=== PATIENT | female | born 1980 | race Caucasian/White ===

== ENCOUNTER 2017-03-01 20:39 | Emergency (ER) | payer BC ==
[2017-03-01] MEDS ORDERED: HYDROmorphone 2 MG/ML 1 ML SYRINGE IVP STA (21:31)
[2017-03-01] MEDS ORDERED: ONDANSETRON 4 MG/2 ML VIAL IVP STA (21:31)
[2017-03-01] MEDS ORDERED: SODIUM CHLORIDE 0.9% 1,000 ML IV STA (21:31)
[2017-03-01] MEDS ORDERED: FAMOTIDINE 20 MG/2 ML VIAL IV STA (21:31)
[2017-03-01] MEDS ORDERED: RX INFO: IV CONTRAST WAS GIVEN 1 EACH MISC MISCELLANE PRN (21:31)
--- NOTE | 2017-03-01 21:35 | ED ---
General Adult HPI - General Chief complaint: Abdominal Pain Stated complaint: Abdominal pain Time Seen by Provider: 03/01/17 21:18 Source: patient, RN notes reviewed Mode of arrival: ambulatory Limitations: no limitations - History of Present Illness Initial comments: Patient is a pleasant 37-year-old female presenting to the emergency department with abdominal and lower back pain. Onset was this afternoon. Symptoms have progressively worsened since that time. Patient does have a history of similar symptoms previously associated with diverticulitis. Patient has been admitted twice previously for this. Patient may have had this 2 other times as well. No dysuria or hematuria. No constipation or diarrhea. Patient has had some loose stools. Patient has had some nausea and vomiting. No fevers. - Related Data Home Medications Medication Instructions Recorded Confirmed Cephalexin [Keflex] 500 mg PO TID 03/01/17 03/01/17 Ibuprofen [Motrin] 400 mg PO Q6HR PRN 03/01/17 03/01/17 Previous Rx's Medication Instructions Recorded Ketorolac [Toradol] 10 mg PO Q6HR PRN #15 tab 03/02/17 Allergies Allergy/AdvReac Type Severity Reaction Status Date / Time No Known Allergies Allergy Verified 03/01/17 21:11 Review of Systems ROS Statement: Those systems with pertinent positive or pertinent negative responses have been documented in the HPI. ROS Other: All systems not noted in ROS Statement are negative. Constitutional: Denies: fever, chills Eyes: Denies: eye pain ENT: Denies: ear pain Respiratory: Denies: cough, dyspnea Cardiovascular: Denies: chest pain Endocrine: Denies: heat or cold intolerance Gastrointestinal: Reports: abdominal pain, nausea, vomiting. Denies: diarrhea Genitourinary: Denies: dysuria, frequency, hematuria Musculoskeletal: Reports: back pain Skin: Denies: rash Neurological: Denies: weakness Past Medical History Additional Past Medical History / Comment(s): diverticulitis History of Any Multi-Drug Resistant Organisms: None Reported Past Surgical History: Appendectomy, Breast Surgery, Cholecystectomy, Hysterectomy Additional Past Surgical History / Comment(s): left breast lumpectomy at 16 yrs old Past Anesthesia/Blood Transfusion Reactions: No Reported Reaction, Motion Sickness Past Psychological History: No Psychological Hx Reported Smoking Status: Current every day smoker Past Alcohol Use History: None Reported Past Drug Use History: None Reported - Past Family History Mother Family Medical History: No Reported History General Exam Limitations: no limitations General appearance: alert, in no apparent distress Head exam: Present: atraumatic Eye exam: Present: normal appearance, PERRL ENT exam: Present: normal oropharynx Neck exam: Present: normal inspection Respiratory exam: Present: normal lung sounds bilaterally Cardiovascular Exam: Present: regular rate, normal rhythm Expanded Peripheral pulses: 2+: Posterior Tibialis (R), Posterior Tibialis (L) GI/Abdominal exam: Present: soft, tenderness (Mild to moderate tenderness lower abdomen), normal bowel sounds. Absent: distended, guarding, rebound, rigid, pulsatile mass Extremities exam: Present: normal inspection. Absent: calf tenderness Back exam: Present: normal inspection. Absent: tenderness, vertebral tenderness Neurological exam: Present: alert Psychiatric exam: Present: normal affect, normal mood Skin exam: Present: normal color Course Vital Signs 03/01/17 03/01/17 03/01/17 20:51 22:11 23:17 Temperature 97.6 F Pulse Rate 105 H 79 85 Respiratory 18 20 18 Rate Blood Pressure 132/81 106/62 109/71 O2 Sat by Pulse 99 97 100 Oximetry - Reevaluation(s) Reevaluation #1: 03/02/17 00:41 Patient states only mild improvement with Dilaudid. Patient still had similar exam. Patient was provided Toradol and now feels much better. There is potential of missed kidney stone on computed tomography scan secondary to IV contrast. Patient does have hematuria. Patient has had previous hysterectomy. Patient is comfortable at this time and is comfortable with discharge. Medical Decision Making - Lab Data Result diagrams: 03/01/17 21:48 03/01/17 21:48 Lab Results 03/01/17 03/01/17 03/01/17 Range/Units 21:48 21:48 21:48 WBC 9.5 (3.8-10.6) k/uL RBC 4.92 (3.80-5.40) m/uL Hgb 14.6 (11.4-16.0) gm/dL Hct 43.9 (34.0-46.0) % MCV 89.3 (80.0-100.0) fL MCH 29.6 (25.0-35.0) pg MCHC 33.1 (31.0-37.0) g/dL RDW 13.1 (11.5-15.5) % Plt Count 271 (150-450) k/uL Neutrophils % 66 % Lymphocytes % 28 % Monocytes % 3 % Eosinophils % 1 % Basophils % 0 % Neutrophils # 6.3 (1.3-7.7) k/uL Lymphocytes # 2.7 (1.0-4.8) k/uL Monocytes # 0.3 (0-1.0) k/uL Eosinophils # 0.1 (0-0.7) k/uL Basophils # 0.0 (0-0.2) k/uL PT 9.6 (9.0-12.0) sec INR 1.0 (<1.2) APTT 26.6 (22.0-30.0) sec Sodium 139 (137-145) mmol/L Potassium 4.2 (3.5-5.1) mmol/L Chloride 109 H (98-107) mmol/L Carbon Dioxide 21 L (22-30) mmol/L Anion Gap 9 mmol/L BUN 12 (7-17) mg/dL Creatinine 0.69 (0.52-1.04) mg/dL Est GFR (MDRD) Af Amer >60 (>60 ml/min/1.73 sqM) Est GFR (MDRD) Non-Af >60 (>60 ml/min/1.73 sqM) Glucose 93 (74-99) mg/dL Calcium 10.1 (8.4-10.2) mg/dL Total Bilirubin 0.3 (0.2-1.3) mg/dL AST 16 (14-36) U/L ALT 30 (9-52) U/L Alkaline Phosphatase 68 (38-126) U/L Total Protein 6.8 (6.3-8.2) g/dL Albumin 4.1 (3.5-5.0) g/dL Amylase 64 (30-110) U/L Lipase 53 (23-300) U/L Urine Color Urine Appearance (Clear) Urine pH (5.0-8.0) Ur Specific [place] (1.001-1.035) Urine Protein (Negative) Urine Glucose (UA) (Negative) Urine Ketones (Negative) Urine Blood (Negative) Urine Nitrite (Negative) Urine Bilirubin (Negative) Urine Urobilinogen (<2.0) mg/dL Ur Leukocyte Esterase (Negative) Urine RBC (0-5) /hpf Urine WBC (0-5) /hpf Ur Squamous Epith Cells (0-4) /hpf Urine Mucus (None) /hpf 03/01/17 Range/Units 22:13 WBC (3.8-10.6) k/uL RBC (3.80-5.40) m/uL Hgb (11.4-16.0) gm/dL Hct (34.0-46.0) % MCV (80.0-100.0) fL MCH (25.0-35.0) pg MCHC (31.0-37.0) g/dL RDW (11.5-15.5) % Plt Count (150-450) k/uL Neutrophils % % Lymphocytes % % Monocytes % % Eosinophils % % Basophils % % Neutrophils # (1.3-7.7) k/uL Lymphocytes # (1.0-4.8) k/uL Monocytes # (0-1.0) k/uL Eosinophils # (0-0.7) k/uL Basophils # (0-0.2) k/uL PT (9.0-12.0) sec INR (<1.2) APTT (22.0-30.0) sec Sodium (137-145) mmol/L Potassium (3.5-5.1) mmol/L Chloride (98-107) mmol/L Carbon Dioxide (22-30) mmol/L Anion Gap mmol/L BUN (7-17) mg/dL Creatinine (0.52-1.04) mg/dL Est GFR (MDRD) Af Amer (>60 ml/min/1.73 sqM) Est GFR (MDRD) Non-Af (>60 ml/min/1.73 sqM) Glucose (74-99) mg/dL Calcium (8.4-10.2) mg/dL Total Bilirubin (0.2-1.3) mg/dL AST (14-36) U/L ALT (9-52) U/L Alkaline Phosphatase (38-126) U/L Total Protein (6.3-8.2) g/dL Albumin (3.5-5.0) g/dL Amylase (30-110) U/L Lipase (23-300) U/L Urine Color Yellow Urine Appearance Clear (Clear) Urine pH 5.5 (5.0-8.0) Ur Specific [place] 1.022 (1.001-1.035) Urine Protein Trace H (Negative) Urine Glucose (UA) Negative (Negative) Urine Ketones Negative (Negative) Urine Blood Moderate H (Negative) Urine Nitrite Negative (Negative) Urine Bilirubin Negative (Negative) Urine Urobilinogen 2.0 (<2.0) mg/dL Ur Leukocyte Esterase Negative (Negative) Urine RBC 36 H (0-5) /hpf Urine WBC <1 (0-5) /hpf Ur Squamous Epith Cells 2 (0-4) /hpf Urine Mucus Rare H (None) /hpf - Radiology Data Radiology results: report reviewed (Computed tomography scan of the abdomen and pelvis shows findings consistent with previous CT. No sign of acute abdominal abnormality.) Disposition Clinical Impression: Abdominal pain Disposition: HOME SELF-CARE Condition: Stable Instructions: Abdominal Pain (ED), Kidney Stones (ED) Additional Instructions: Please follow-up to in the next day or 2 for recheck. Please return for fevers, vomiting, increased pain, worsening symptoms or other concerns. Prescriptions: Ketorolac [Toradol] 10 mg PO Q6HR PRN #15 tab PRN Reason: Pain Referrals: Darin Julien MD [Primary Care Provider] - 1-2 days Time of Disposition: 00:45
[2017-03-01 22:00] LABS: Basophils % (A) 0 %; Eosinophils # (A) 0.1 k/uL (0-0.7); Eosinophils % (A) 1 %; HCT 43.9 % (34.0-46.0); HGB 14.6 gm/dL (11.4-16.0); Lymphocytes # (A) 2.7 k/uL (1.0-4.8); Lymphocytes % (A) 28 %; MCH 29.6 pg (25.0-35.0); MCHC 33.1 g/dL (31.0-37.0); MCV 89.3 fL (80.0-100.0); Mean Platelet Volume 6.8; Monocytes # (A) 0.3 k/uL (0-1.0); Monocytes % (A) 3 %; Neutrophils # (A) 6.3 k/uL (1.3-7.7); Neutrophils % (A) 66 %; Platelet Count 271 k/uL (150-450); RBC 4.92 m/uL (3.80-5.40); RDW 13.1 % (11.5-15.5); WBC 9.5 k/uL (3.8-10.6)
[2017-03-01 22:11] LABS: ALT 30 U/L (9-52); AST 16 U/L (14-36); Albumin 4.1 g/dL (3.5-5.0); Alkaline Phosphatase 68 U/L (38-126); Amylase 64 U/L (30-110); Anion Gap 9 mmol/L; Blood Urea Nitrogen 12 mg/dL (7-17); Calcium 10.1 mg/dL (8.4-10.2); Carbon Dioxide 21 mmol/L (22-30); Chloride 109 mmol/L (98-107); Glucose 93 mg/dL (74-99); Lipase 53 U/L (23-300); Potassium 4.2 mmol/L (3.5-5.1); Sodium 139 mmol/L (137-145); Total Bilirubin 0.3 mg/dL (0.2-1.3); Total Protein 6.8 g/dL (6.3-8.2)
[2017-03-01 22:12] LABS: Partial Thromboplastin Time 26.6 sec (22.0-30.0); Prothrombin Time 9.6 sec (9.0-12.0)
[2017-03-01 22:25] LABS: Appearance,Urine Clear (Clear); Bilirubin,Urine Negative (Negative); Blood,Urine Moderate (Negative); Color,Urine Yellow; Glucose,Urine (UA) Negative (Negative); Ketones,Urine Negative (Negative); Leukocyte Esterase,Urine Negative (Negative); Mucus,Urine Rare /hpf; Nitrite,Urine Negative (Negative); PH, Urine 5.5 (5.0-8.0); Protein,Urine Trace (Negative); RBC,Urine 36 /hpf (0-5); Specific Gravity,Urine 1.022 (1.001-1.035); Squamous Epithelial Cell,Urine 2 /hpf (0-4); WBC,Urine <1 /hpf (0-5)
--- NOTE | 2017-03-01 23:07 | CT ---
EXAMINATION TYPE: CT abdomen pelvis w con DATE OF EXAM: 03/01/2017 COMPARISON: 10/13/2012 HISTORY: Generalized abdominal pain with nausea, vomiting and diarrhea x today. CT DLP: 756.50 mGycm Automated exposure control for dose reduction was used. TECHNIQUE: Helical acquisition of images was performed from the lung bases through the pelvis. CONTRAST: Performed without Oral Contrast and with IV Contrast, patient injected with 100 mL of Omnipaque 300. FINDINGS: There is minimal linear density at the lung bases consistent with subsegmental atelectasis. There is a 3 cm rounded hypodensity in the superior right lobe of the liver. There is a 1 cm similar hypodensi ty in the lateral right lobe of the liver. There are clips from cholecystectomy. Bile ducts are not d ilated. There is no evidence of pancreatic mass. Spleen appears normal. There is no adrenal mass. Kidneys show satisfactory contrast opacification. There is no hydronephrosi s. There is no retroperitoneal adenopathy. Bladder distends smoothly. There is no sign of a pelvic ma ss. Appendix is not seen. There are surgical clips in the right lower quadrant probably from appendec rené. I see no intestinal wall thickening. There are no dilated loops. I see no bony destructive proc ess. IMPRESSION: SMALL LIVER LESIONS COULD BE HEMANGIOMATA. THESE APPEAR NOT SIGNIFICANTLY DIFFERENT THAN OLD CT SCAN. THERE IS DECREASED SIZE OF THE INTRAHEPATIC BILE DUCTS COMPARED TO OLD EXAM. NO SIGN OF ACUTE ABDOME N AND PELVIS.
[2017-03-01 23:18] VITALS: PULSE 85; RESP 18
[2017-03-01] MEDS ORDERED: KETOROLAC 30 MG/ML 1 ML VIAL IVP STA (23:39)
[2017-03-02 01:03] VITALS: BP 109/76; TEMP 98.2
== END 2017-03-02 01:02 | disposition home or self-care (01) ==
LOC: EC 20:39
DX: R10.9 Unspecified abdominal pain (principal); M54.5 Low back pain; R31.9 Hematuria, unspecified; R11.2 Nausea with vomiting, unspecified; F17.200 Nicotine dependence, unspecified, uncomplicated; Z90.49 Acquired absence of other specified parts of digestive tract
CPT/HCPCS: 36415; 80053; 82150; 83690; 85025; 85610; 85730; 81001; 74177; 99284; 96374; 96375 ×3; 96361; J1170; J2405; J1885; Q9967; 87086

== ENCOUNTER 2017-05-11 08:49 | Day surgery (SDC) | payer BC ==
[2017-05-09 15:49] VITALS: BMI 32.3
[~2017-05-11 08:49] MED LIST: LACTATED RINGERS 1,000 ML IV SCH; LIDOCAINE 1% 20 ML VIAL (10MG/ML) FOR IV START INTRADERMA PRN
[2017-05-11 09:53] VITALS: RESP 16; TEMP 98.6
[2017-05-11] MEDS ORDERED: PROPOFOL 10 MG/ML 20 ML VIAL IV ONE (10:05)
[2017-05-11] MEDS ORDERED: LIDOCAINE 1% 20 ML VIAL (10MG/ML) FOR IV START INTRADERMA ONE (10:05)
--- NOTE | 2017-05-11 10:43 | P.PCN ---
Date of Procedure: 05/11/17 Procedure(s) Performed: Procedure: Colonoscopy and polypectomy. Preoperative diagnosis: History of diverticulitis. Postoperative diagnosis: 1. Diffuse diverticulosis with no evidence of acute diverticulitis or strictures. 2. Sigmoid polyp snared but no large polyps or cancer. Preparation: HalfLytely prep. Sedation: Was provided by anesthesia. Brief clinical history: The patient is a 37-year-old female who had an episode of diverticulitis in February. This evaluation is to assess for neoplasia or complicated diverticular disease. Procedure: With the patient on her left lateral decubitus position and after informed consent and adequate sedation, the perianal area was inspected and it did not show any fissures or fistulas. There were no masses felt on digital rectal examination. The Olympus CFQ 160L video colonoscope was then inserted in the rectum in the usual fashion and advanced to the cecum. There was diffuse diverticulosis noted with no evidence of acute diverticulitis or strictures. At 30 cm from the anal canal, there was a 1.5-2 cm pedunculated polyp which was snared and retrieved by suctioning it to the tip of the endoscope, withdrawing the endoscope, and restarting the exam. I retroflexed the endoscope in the rectum before the endoscope was withdrawn. The patient tolerated the procedure well. Plan: The patient was reassured. Discussed dietary measures. I recommended repeat exam in 3 years. She'll follow-up with you as planned.
[2017-05-11 10:56] VITALS: BP 149/78; PULSE 89
== END 2017-05-11 11:30 | disposition home or self-care (01) ==
LOC: ORWHC2ENDO 08:49
DX: D12.5 Benign neoplasm of sigmoid colon (principal); K57.30 Diverticulosis of large intestine without perforation or abscess without bleeding; F17.210 Nicotine dependence, cigarettes, uncomplicated
CPT/HCPCS: 88305; 45385; J2704

== ENCOUNTER 2017-09-22 20:25 | Emergency (ER) | payer BC ==
[2017-09-22 21:20] VITALS: TEMP 98.3
[2017-09-22] MEDS ORDERED: MORPHINE SULFATE 4 MG/ML SYRINGE IV STA (21:43)
[2017-09-22] MEDS ORDERED: SODIUM CHLORIDE 0.9% 1,000 ML IV STA (21:43)
[2017-09-22] MEDS ORDERED: ONDANSETRON 4 MG/2 ML VIAL IVP STA (21:43)
--- NOTE | 2017-09-22 21:43 | ED ---
General Adult HPI - General Chief complaint: Abdominal Pain Stated complaint: abdominal pain- Time Seen by Provider: 09/22/17 21:30 Source: patient Mode of arrival: ambulatory Limitations: no limitations - History of Present Illness Initial comments: Female the past medical history of diverticulitis who presents to the ER today for evaluation of lower abdominal pain. Patient was in her usual state of health throughout the day today. She reports she had a normal diet, she had breakfast but chose to skip lunch which is typical for her. She states that she was feeling well until approximately 6 PM when she was sitting on the toilet have a bowel movement. She states that she wasn't straining, she had a bowel movement which was normal in color caliber and consistency but she suddenly developed low abdominal pain, nausea and has had 3 episodes of nonbloody nonbilious emesis. Patient sought care at [facility] where urinalysis revealed some hematuria and she was advised to come to the ER for further evaluation. She reports that she has had diverticulitis multiple times in the past. Her last episode was approximately one year ago. She had a colonoscopy in April of this year which had findings of diverticulosis. Patient reports that with previous episodes of diverticulitis she has had very similar symptoms. She reports that she has lower abdominal pain, nausea, vomiting and pain that radiates to her back. The patient is status post hysterectomy 6 years previous. No history of kidney stones. Of note the patient is currently on by mouth doxycycline for recurrent cystitis. She has been taking this medication for approximately one month and is prescribed to take it for 3 months total. - Related Data Previous Rx's Medication Instructions Recorded Dicyclomine [Bentyl] 10 mg PO QID PRN #30 capsule 09/22/17 Allergies Allergy/AdvReac Type Severity Reaction Status Date / Time No Known Allergies Allergy Verified 09/22/17 21:20 Review of Systems ROS Statement: Those systems with pertinent positive or pertinent negative responses have been documented in the HPI. ROS Other: All systems not noted in ROS Statement are negative. Constitutional: Denies: fever Past Medical History Additional Past Medical History / Comment(s): diverticulitis History of Any Multi-Drug Resistant Organisms: None Reported Past Surgical History: Appendectomy, Breast Surgery, Cholecystectomy, Hysterectomy Additional Past Surgical History / Comment(s): left breast lumpectomy at 16 yrs old Past Anesthesia/Blood Transfusion Reactions: No Reported Reaction, Motion Sickness Past Psychological History: No Psychological Hx Reported Smoking Status: Current every day smoker Past Alcohol Use History: None Reported Past Drug Use History: None Reported - Past Family History Mother Family Medical History: No Reported History General Exam Limitations: no limitations General appearance: alert, in no apparent distress Head exam: Present: atraumatic, normocephalic Eye exam: Present: normal appearance, PERRL ENT exam: Present: normal exam Neck exam: Present: normal inspection Respiratory exam: Present: normal lung sounds bilaterally. Absent: respiratory distress Cardiovascular Exam: Present: regular rate, normal rhythm GI/Abdominal exam: Present: soft, tenderness. Absent: distended, guarding, rebound, rigid Rectal exam: Present: deferred Extremities exam: Present: normal inspection, full ROM Back exam: Present: normal inspection, full ROM Neurological exam: Present: alert, oriented X3 Psychiatric exam: Present: normal affect, normal mood Skin exam: Present: warm, dry Course Vital Signs 09/22/17 09/22/17 09/22/17 21:18 22:38 23:23 Temperature 98.3 F Pulse Rate 80 74 70 Respiratory 22 16 16 Rate Blood Pressure 114/75 96/54 102/59 O2 Sat by Pulse 99 98 98 Oximetry 09/23/17 09/23/17 09/23/17 00:19 01:28 02:37 Temperature Pulse Rate 68 73 80 Respiratory 20 16 16 Rate Blood Pressure 137/80 109/73 98/58 O2 Sat by Pulse 97 97 97 Oximetry - Reevaluation(s) Reevaluation #1: Patient reevaluated, resting comfortably in bed. Reports feeling better after meds and IV fluids. Lab and CT results were discussed with patient expresses relief and is agreeable to plan for discharge home. 09/22/17 23:29 Reevaluation #2: When nurse went into the room to discharge patient she was curled up in the position complaining of epigastric and chest pain. I reevaluated patient who is laying in bed reports she's having severe epigastric pain radiating into her mid chest. 09/23/17 00:34 EKG Findings - EKG Comments: EKG Findings:: EKG obtained at 12:47 AM, rate of 63, rhythm is sinus, normal axis, normal intervals, ME is 148, QRS is 94, QTC is 399, there are no acute ST elevations or depressions. There is no evidence of acute ischemia or infarction. Medical Decision Making - Medical Decision Making 37-year-old female presenting with lower abdominal pain, nausea and vomiting Vital signs with no SIRS criteria Labs and imaging ordered Zofran for nausea, Morphine for pain Labs are unremarkable Computed tomography scan with no acute findings, patient has hemangioma which is unchanged, diverticulosis with no evidence of infection She was reevaluated and is resting comfortably, expresses relief that there is no acute findings. Is agreeable to plan discharge home with by mouth Bentyl When the nurse entered the room to discharge patient, patient was complaining of worsening nausea and epigastric discomfort. She does vital signs were stable. EKG and troponins were ordered. Bentyl and a GI cocktail was ordered EKG was normal sinus rhythm with no ST elevations or depressions. Troponin and lipase were both negative. Patient was reevaluated, she reports complete resolution of her abdominal discomfort. Patient is resting comfortably and is agreeable to plan for discharge home with follow-up with gastroenterology. All questions pertaining to care were answered best my ability, return instructions were discussed and the patient was discharged home in stable condition. - Lab Data Result diagrams: 09/22/17 22:01 09/22/17 22:01 Lab Results 09/22/17 09/22/17 09/22/17 Range/Units 22:01 22:01 22:01 WBC 10.3 (3.8-10.6) k/uL RBC 4.87 (3.80-5.40) m/uL Hgb 14.3 (11.4-16.0) gm/dL Hct 43.0 (34.0-46.0) % MCV 88.5 (80.0-100.0) fL MCH 29.4 (25.0-35.0) pg MCHC 33.2 (31.0-37.0) g/dL RDW 13.4 (11.5-15.5) % Plt Count 248 (150-450) k/uL Neutrophils % 72 % Lymphocytes % 22 % Monocytes % 3 % Eosinophils % 1 % Basophils % 0 % Neutrophils # 7.4 (1.3-7.7) k/uL Lymphocytes # 2.3 (1.0-4.8) k/uL Monocytes # 0.3 (0-1.0) k/uL Eosinophils # 0.1 (0-0.7) k/uL Basophils # 0.0 (0-0.2) k/uL Sodium 138 (137-145) mmol/L Potassium 4.4 (3.5-5.1) mmol/L Chloride 111 H (98-107) mmol/L Carbon Dioxide 20 L (22-30) mmol/L Anion Gap 7 mmol/L BUN 13 (7-17) mg/dL Creatinine 0.60 (0.52-1.04) mg/dL Est GFR (CKD-EPI)AfAm >90 (>60 ml/min/1.73 sqM) Est GFR (CKD-EPI)NonAf >90 (>60 ml/min/1.73 sqM) Glucose 88 (74-99) mg/dL Calcium 10.1 (8.4-10.2) mg/dL Total Bilirubin 0.4 (0.2-1.3) mg/dL AST 21 (14-36) U/L ALT 29 (9-52) U/L Alkaline Phosphatase 58 (38-126) U/L Troponin I (0.000-0.034) ng/mL Total Protein 6.8 (6.3-8.2) g/dL Albumin 4.3 (3.5-5.0) g/dL Lipase 47 (23-300) U/L Urine Color Light Yellow Urine Appearance Clear (Clear) Urine pH 5.5 (5.0-8.0) Ur Specific [place] 1.010 (1.001-1.035) Urine Protein Negative (Negative) Urine Glucose (UA) Negative (Negative) Urine Ketones Negative (Negative) Urine Blood Small H (Negative) Urine Nitrite Negative (Negative) Urine Bilirubin Negative (Negative) Urine Urobilinogen <2.0 (<2.0) mg/dL Ur Leukocyte Esterase Negative (Negative) Urine RBC 3 (0-5) /hpf Urine WBC 3 (0-5) /hpf Ur Squamous Epith Cells 2 (0-4) /hpf Urine Bacteria Rare H (None) /hpf 09/22/17 Range/Units 22:01 WBC (3.8-10.6) k/uL RBC (3.80-5.40) m/uL Hgb (11.4-16.0) gm/dL Hct (34.0-46.0) % MCV (80.0-100.0) fL MCH (25.0-35.0) pg MCHC (31.0-37.0) g/dL RDW (11.5-15.5) % Plt Count (150-450) k/uL Neutrophils % % Lymphocytes % % Monocytes % % Eosinophils % % Basophils % % Neutrophils # (1.3-7.7) k/uL Lymphocytes # (1.0-4.8) k/uL Monocytes # (0-1.0) k/uL Eosinophils # (0-0.7) k/uL Basophils # (0-0.2) k/uL Sodium (137-145) mmol/L Potassium (3.5-5.1) mmol/L Chloride (98-107) mmol/L Carbon Dioxide (22-30) mmol/L Anion Gap mmol/L BUN (7-17) mg/dL Creatinine (0.52-1.04) mg/dL Est GFR (CKD-EPI)AfAm (>60 ml/min/1.73 sqM) Est GFR (CKD-EPI)NonAf (>60 ml/min/1.73 sqM) Glucose (74-99) mg/dL Calcium (8.4-10.2) mg/dL Total Bilirubin (0.2-1.3) mg/dL AST (14-36) U/L ALT (9-52) U/L Alkaline Phosphatase (38-126) U/L Troponin I <0.012 (0.000-0.034) ng/mL Total Protein (6.3-8.2) g/dL Albumin (3.5-5.0) g/dL Lipase (23-300) U/L Urine Color Urine Appearance (Clear) Urine pH (5.0-8.0) Ur Specific [place] (1.001-1.035) Urine Protein (Negative) Urine Glucose (UA) (Negative) Urine Ketones (Negative) Urine Blood (Negative) Urine Nitrite (Negative) Urine Bilirubin (Negative) Urine Urobilinogen (<2.0) mg/dL Ur Leukocyte Esterase (Negative) Urine RBC (0-5) /hpf Urine WBC (0-5) /hpf Ur Squamous Epith Cells (0-4) /hpf Urine Bacteria (None) /hpf Disposition Clinical Impression: Abdominal pain Disposition: HOME SELF-CARE Condition: Good Instructions: Abdominal Pain (ED) Prescriptions: Dicyclomine [Bentyl] 10 mg PO QID PRN #30 capsule PRN Reason: Pain Is patient prescribed a controlled substance at d/c from ED?: No Referrals: Darin Julien MD [Primary Care Provider] - 1-2 days
[2017-09-22 22:53] LABS: Basophils % (A) 0 %; Eosinophils # (A) 0.1 k/uL (0-0.7); Eosinophils % (A) 1 %; HGB 14.3 gm/dL (11.4-16.0); Lymphocytes # (A) 2.3 k/uL (1.0-4.8); Lymphocytes % (A) 22 %; MCH 29.4 pg (25.0-35.0); MCHC 33.2 g/dL (31.0-37.0); MCV 88.5 fL (80.0-100.0); Mean Platelet Volume 7.5; Monocytes # (A) 0.3 k/uL (0-1.0); Monocytes % (A) 3 %; Neutrophils # (A) 7.4 k/uL (1.3-7.7); Neutrophils % (A) 72 %; Platelet Count 248 k/uL (150-450); RBC 4.87 m/uL (3.80-5.40); RDW 13.4 % (11.5-15.5); WBC 10.3 k/uL (3.8-10.6)
[2017-09-22 22:56] LABS: Appearance,Urine Clear (Clear); Bacteria,Urine Rare /hpf; Bilirubin,Urine Negative (Negative); Blood,Urine Small (Negative); Color,Urine Light Yellow; Glucose,Urine (UA) Negative (Negative); Ketones,Urine Negative (Negative); Leukocyte Esterase,Urine Negative (Negative); Nitrite,Urine Negative (Negative); PH, Urine 5.5 (5.0-8.0); Protein,Urine Negative (Negative); RBC,Urine 3 /hpf (0-5); Squamous Epithelial Cell,Urine 2 /hpf (0-4); Urobilinogen,Urine <2.0 mg/dL (<2.0); WBC,Urine 3 /hpf (0-5)
[2017-09-22 23:09] LABS: ALT 29 U/L (9-52); AST 21 U/L (14-36); Albumin 4.3 g/dL (3.5-5.0); Alkaline Phosphatase 58 U/L (38-126); Anion Gap 7 mmol/L; Blood Urea Nitrogen 13 mg/dL (7-17); Calcium 10.1 mg/dL (8.4-10.2); Carbon Dioxide 20 mmol/L (22-30); Chloride 111 mmol/L (98-107); Glucose 88 mg/dL (74-99); Lipase 47 U/L (23-300); Potassium 4.4 mmol/L (3.5-5.1); Sodium 138 mmol/L (137-145); Total Bilirubin 0.4 mg/dL (0.2-1.3); Total Protein 6.8 g/dL (6.3-8.2)
--- NOTE | 2017-09-22 23:15 | CT ---
EXAMINATION TYPE: CT abdomen pelvis w con DATE OF EXAM: 09/22/2017 COMPARISON: 03/01/2017 HISTORY: Abdominal pain and vomiting CT DLP: mGycm Automated exposure control for dose reduction was used. TECHNIQUE: Helical acquisition of images was performed from the lung bases through the pelvis. CONTRAST: The contrast was Isovue 100 mL. FINDINGS: There is minimal linear density at the lung bases consistent with subsegmental atelectasis. There is no pleural effusion. There are cysts in the liver that measure up to 2.3 cm. Bile ducts are not dilat ed. There are clips from cholecystectomy. Spleen appears normal. There is no pancreatic mass. There is no adrenal mass. Kidneys show satisfactory contrast opacification. There is no hydronephrosi s. There is no retroperitoneal adenopathy. There is small umbilical hernia. This contains fat. There is no intestinal wall thickening. There are no dilated loops. There are clips apparently from a ppendectomy. Bladder distends smoothly. There is apparent hysterectomy. There is no pelvic mass. Lumb ar spine is intact. There are a few sigmoid diverticula. There is no sign of diverticulitis. IMPRESSION: HEPATIC CYSTS OR HEMANGIOMATA APPEAR UNCHANGED COMPARED TO OLD CT SCAN. MILD SIGMOID DIVERTICULOSIS. NO SIGN OF ACUTE ABDOMEN AND PELVIS. THERE IS OVERALL NO ADVERSE CHANGE COMPARED TO OLD EXAM.
[2017-09-23] MEDS ORDERED: DICYCLOMINE 10 MG/ML 2 ML AMP IM STA (00:32)
[2017-09-23] MEDS ORDERED: MAG HYDROX/AL HYDROX/SIMETH 30 ML, HYOSCYAMINE ELIXIR 10 ML, CIMETIDINE HCL 300 MG, LID... PO STA ×4 (01:19)
[2017-09-23 01:30] VITALS: RESP 16
--- NOTE | 2017-09-23 02:02 | XR ---
EXAMINATION TYPE: XR chest 2V DATE OF EXAM: 09/23/2017 COMPARISON: NONE HISTORY: Chest pain TECHNIQUE: Frontal and lateral views of the chest are obtained. FINDINGS: Heart and mediastinum are normal. Lungs are clear. Diaphragm is normal. Bony thorax appear s normal. IMPRESSION: Normal chest
[2017-09-23 02:40] VITALS: BP 98/58; PULSE 80
== END 2017-09-23 02:44 | disposition home or self-care (01) ==
LOC: EC 20:25
DX: K57.90 Diverticulosis of intestine, part unspecified, without perforation or abscess without bleeding (principal); F17.200 Nicotine dependence, unspecified, uncomplicated; Z90.49 Acquired absence of other specified parts of digestive tract; Z90.710 Acquired absence of both cervix and uterus
CPT/HCPCS: 36415; 93005; 80053; 83690; 84484; 85025; 81001; 71046; 74177; 99284; 96374; 96375; 96372; J2270; J0500; J2405; Q9967

== ENCOUNTER → 2018-05-21 | Outpatient (CLI) | payer BC ==
--- NOTE | 2018-05-23 10:25 | MM ---
Reason for exam: screening (asymptomatic). Last mammogram was performed 4 years and 1 month ago. History: Benign excisional biopsy of the left breast. Took hormonal contraceptives for 1 year. Physical Findings: A clinical breast exam by your physician is recommended on an annual basis and results should be correlated with mammographic findings. MG Screening Mammo w CAD Bilateral CC and MLO view(s) were taken. Prior study comparison: April 11, 2014, bilateral MG screening mammo w CAD. August 27, 2010, CAD bilateral diagnostic mammogram. The breast tissue is extremely dense which could obscure a lesion on mammography. No suspicious abnormality. No significant changes when compared with prior studies. ASSESSMENT: Negative, BI-RAD 1 RECOMMENDATION: Routine screening mammogram of both breasts in 1 year.
== END | disposition home or self-care (01) ==
LOC: RADMAMWWP 08:00
PROVIDERS: ATTEND Family Medicine
DX: Z12.31 Encounter for screening mammogram for malignant neoplasm of breast (principal)
CPT/HCPCS: 77067

== ENCOUNTER → 2018-10-09 | Outpatient (CLI) | payer BC ==
[2018-10-09 20:03] LABS: Cyclic Citrull Pep IgG Unit <0.5 U/mL; Cyclic Citrullinated Pep IgG NEGATIVE (NEGATIVE)
== END | disposition home or self-care (01) ==
LOC: LABWHC1 11:58
PROVIDERS: ATTEND Dermatology Procedural Dermatology
DX: M06.9 Rheumatoid arthritis, unspecified (principal); H00.19 Chalazion unspecified eye, unspecified eyelid
CPT/HCPCS: 36415; 86038; 86200

== ENCOUNTER → 2019-08-23 | Outpatient (CLI) | payer SELFPAY ==
--- NOTE | 2019-08-23 13:09 | XR ---
Abdomen HISTORY: Pain, rectal bleeding Frontal view the abdomen submitted on [address] scan dated 09/22/2017 Surgical clips are present right upper quadrant. There is some minimal patchy density at the left cos tophrenic angle level possibly lingula likely scar. No evident bowel obstruction or pneumoperitoneum. Surgical clips present in the right hemipelvis. There is no bowel obstruction or pneumoperitoneum. N o pathologic calcification. IMPRESSION: No acute abdominal finding. Probable scarring in the lingula.
[2019-08-23 13:36] LABS: Basophils # (A) 0.1 k/uL (0-0.2); Basophils % (A) 1 %; Eosinophils # (A) 0.1 k/uL (0-0.7); Eosinophils % (A) 1 %; HGB 15.4 gm/dL (11.4-16.0); Lymphocytes # (A) 3.1 k/uL (1.0-4.8); Lymphocytes % (A) 30 %; MCH 29.4 pg (25.0-35.0); MCHC 32.1 g/dL (31.0-37.0); MCV 91.8 fL (80.0-100.0); Mean Platelet Volume 7.7; Monocytes # (A) 0.4 k/uL (0-1.0); Monocytes % (A) 3 %; Neutrophils # (A) 6.6 k/uL (1.3-7.7); Neutrophils % (A) 64 %; Platelet Count 297 k/uL (150-450); RBC 5.23 m/uL (3.80-5.40); RDW 13.2 % (11.5-15.5); WBC 10.4 k/uL (3.8-10.6)
[2019-08-23 19:26] LABS: African American GFR (CKD) 125.6 (60.0-200.0); Albumin 4.4 g/dL (3.80-4.90); Albumin/Globulin Ratio 2.1 (1.60-3.17); Anion Gap 6.6 mmol/L (4.00-12.00); BUN/Creat Ratio 12.86 Ratio (12.00-20.00); Carbon Dioxide 23.4 mmol/L (21.6-31.8); Globulin 2.1 g/dL (1.6-3.3); Non-African American GFR(CKD) 108.4 (60.0-200.0); Potassium 4.4 mmol/L (3.5-5.5); Total Bilirubin 0.2 mg/dL (0.3-1.2); Total Protein 6.5 g/dL (6.2-8.2)
[2019-08-23 19:46] LABS: INR <0.90 (0.90-1.11); Prothrombin Time <9.9 sec (9.9-11.9)
== END | disposition home or self-care (01) ==
LOC: LABWHC1 11:29
PROVIDERS: ATTEND Nurse Practitioner Family
DX: R10.9 Unspecified abdominal pain (principal); K62.5 Hemorrhage of anus and rectum
CPT/HCPCS: 36415; 74018; 80053; 85025; 85610

== ENCOUNTER 2019-09-27 10:43 | Day surgery (SDC) | payer OTHER ==
[2019-09-24 14:49] VITALS: BMI 30.1
[~2019-09-27 10:43] MED LIST changes: +LIDOCAINE 1% (10MG/ML) FOR IV START INTRADERMA PRN; -LIDOCAINE 1% 20 ML VIAL (10MG/ML) FOR IV START INTRADERMA PRN
[2019-09-27 11:12] VITALS: TEMP 981
[2019-09-27] MEDS ORDERED: PROPOFOL 10 MG/ML 20 ML VIAL IV ONE (11:48)
[2019-09-27 12:08] VITALS: RESP 16
--- NOTE | 2019-09-27 12:08 | P.PCN ---
Date of Procedure: 09/27/19 Procedure(s) Performed: BRIEF HISTORY: Patient is a 39-year-old pleasant female scheduled for an elective colonoscopy as a part of evaluation of intermittent rectal bleeding for the last 2 weeks' duration. Also has prior history of colon polyps.. PROCEDURE PERFORMED: Colonoscopy with snare polypectomy. PREOPERATIVE DIAGNOSIS:Intermittent rectal bleeding]. IV sedation per Anesthesia. PROCEDURE: After informed consent was obtained, the patient, was brought into the endoscopy unit. IV sedation was administered by Anesthesia under continuous monitoring. Digital rectal examination was normal. Initially the Olympus CF-160 flexible video colonoscope was then inserted in the rectum, gradually advanced into the cecum without any difficulty. Careful examination was performed as the scope was gradually being withdrawn. Ileocecal valve and the appendiceal orifice were visualized and appeared normal. Prep was fair. Mucosa of the cecum, ascending colon, had some sticky still noted. In the transverse colon there was a 1 cm polyp removed by snare polypectomy. In the descending colon there was a 5 mm polyp removed by snare polypectomy. Rest of the transverse colon, descending colon, sigmoid colon, and rectum appeared normal. Retroflexion was performed in the rectum and small internal hemorrhoids were seen. The patient tolerated the procedure well. IMPRESSION: 5 mm desc colon polyp s/p snare polypectomy 1 cm transverse colon polyp s/p snare polypectomy Small internal hemorrhoids RECOMMENDATIONS: Findings of this examination were discussed with the patient as well as her family. She was advised to follow with the biopsy results. If the biopsy shows an adenoma she can have a repeat colonoscopy in 5 years. In the meantime she was advised to be a high-fiber diet and take fiber supplements a regular basis and avoid straining and constipation
[2019-09-27 12:36] VITALS: BP 104/66; PULSE 66
== END 2019-09-27 12:55 | disposition home or self-care (01) ==
LOC: ORWHC2ENDO 10:43
PROVIDERS: ATTEND Internal Medicine Gastroenterology
DX: D12.4 Benign neoplasm of descending colon (principal); D12.3 Benign neoplasm of transverse colon; K64.8 Other hemorrhoids; Z86.010 Personal history of colon polyps; F17.210 Nicotine dependence, cigarettes, uncomplicated; Z90.49 Acquired absence of other specified parts of digestive tract; Z98.890 Other specified postprocedural states; Z90.710 Acquired absence of both cervix and uterus; Z87.898 Personal history of other specified conditions
CPT/HCPCS: 88305; 45385; J2704

== ENCOUNTER → 2019-12-30 | Outpatient (CLI) | payer OTHER ==
--- NOTE | 2019-12-30 10:37 | MM ---
Reason for exam: clinical finding. Last mammogram was performed 1 year and 7 months ago. History: Benign excisional biopsy of the left breast. Took hormonal contraceptives for 1 year. Physical Findings: Nurse did not find any significant physical abnormalities on exam. MG 3D Diag Mammo W/Cad SURJIT Bilateral CC and MLO view(s) were taken. Prior study comparison: May 21, 2018, bilateral MG screening mammo w CAD. April 11, 2014, bilateral MG screening mammo w CAD. The breast tissue is heterogeneously dense. This may lower the sensitivity of mammography. These results were verbally communicated with the patient and result sheet given to the patient on 12/30/19. ASSESSMENT: Incomplete: need additional imaging evaluation, BI-RAD 0 RECOMMENDATION: Ultrasound of the right breast. (palpable)
--- NOTE | 2019-12-30 10:39 | USB ---
Reason for exam: additional evaluation requested from abnormal screening. History: Benign excisional biopsy of the left breast. Took hormonal contraceptives for 1 year. US Breast Limited RT Right limited breast ultrasound including focal area of concern, retroareolar and axilla demonstrates a 0.3 x 0.3 x 0.2cm oval, cystic lesion at 12 o'clock, a 0.7 x 0.6 x 0.4cm oval, cystic lesion at 1 o'clock and a 0.3 x 0.3 x 0.3cm oval, cystic lesion at the posterior nipple. These results were verbally communicated with the patient and result sheet given to the patient on 12/30/19. ASSESSMENT: Probably benign, BI-RAD 3 RECOMMENDATION: Follow-up diagnostic mammogram and ultrasound of the right breast in 6 months.
== END | disposition home or self-care (01) ==
LOC: RADMAMWWP 09:01
PROVIDERS: ATTEND Family Medicine
DX: N63.10 Unspecified lump in the right breast, unspecified quadrant (principal); N63.20 Unspecified lump in the left breast, unspecified quadrant; N64.4 Mastodynia; R92.8 Other abnormal and inconclusive findings on diagnostic imaging of breast
CPT/HCPCS: 77062; 77066

== ENCOUNTER → 2020-07-09 | Outpatient (CLI) | payer OTHER ==
--- NOTE | 2020-07-09 14:48 | MM ---
Reason for exam: follow-up at short interval from prior study. Last mammogram was performed 6 months ago. History: Benign excisional biopsy of the left breast. Took hormonal contraceptives for 1 year. Physical Findings: Nurse did not find any significant physical abnormalities on exam. MG 3D Diag Mammo W/Cad RT CC and MLO view(s) were taken of the right breast. Prior study comparison: December 30, 2019, bilateral MG 3d diag mammo w/cad SURJIT. May 21, 2018, bilateral MG screening mammo w CAD. The breast tissue is extremely dense which could obscure a lesion on mammography. No significant new findings when compared with previous films. These results were verbally communicated with the patient and result sheet given to the patient on 07/09/20. ASSESSMENT: Incomplete: need additional imaging evaluation, BI-RAD 0 RECOMMENDATION: Ultrasound of the right breast.
--- NOTE | 2020-07-09 14:50 | USB ---
Reason for exam: additional evaluation requested from abnormal screening. History: Benign excisional biopsy of the left breast. Took hormonal contraceptives for 1 year. US Breast Limited RT Right limited breast ultrasound including focal area of concern, retroareolar and axilla demonstrates three simple, benign appearing, cystic lesions measuring 0.4 x 0.4 x 0.3cm at 12 o'clock, 0.6 x 0.5 x 0.4cm at 1 o'clock and 0.4 x 0.3 x 0.2cm at 3 o'clock. These results were verbally communicated with the patient and result sheet given to the patient on 07/09/20. ASSESSMENT: Benign, BI-RAD 2 RECOMMENDATION: Routine screening mammogram of both breasts in 6 months.
== END | disposition home or self-care (01) ==
LOC: RADMAMWWP 13:23
PROVIDERS: ATTEND Family Medicine
DX: R92.2 Inconclusive mammogram (principal); N60.01 Solitary cyst of right breast
CPT/HCPCS: 77061; 77065

== ENCOUNTER 2020-10-05 12:25 | Emergency (ER) | payer OTHER ==
[2020-10-05 13:01] VITALS: TEMP 98.9
[2020-10-05] MEDS ORDERED: SODIUM CHLORIDE 0.9% 1,000 ML IV STA (13:15)
[2020-10-05] MEDS ORDERED: ONDANSETRON 4 MG/2 ML VIAL IVP STA (13:15)
[2020-10-05] MEDS ORDERED: MORPHINE SULFATE 4 MG/ML SYRINGE IV STA (13:15)
--- NOTE | 2020-10-05 13:19 | ED ---
General Adult HPI - General Source: patient Mode of arrival: ambulatory Limitations: no limitations <Stan Mojica Yennifer - Last Filed: 10/05/20 14:52> <DudleyQian bragg Marlyn - Last Filed: 10/05/20 19:58> - General Chief complaint: Abdominal Pain Stated complaint: abd pain Time Seen by Provider: 10/05/20 13:06 - History of Present Illness Initial comments: Dictation was produced using [employer] dictation software. please excuse any grammatical, word or spelling errors. Chief Complaint: 40-year-old female past medical history of diverticulitis, colonic polyps presents to the emergency department for 2 days of abdominal pain. History of Present Illness: 40-year-old female she reports extensive history of diverticulosis and diverticulitis. Patient states that she has been having abdominal pain for the last 2 days. States worse in the left lower quadrant. States that it severe worsening usual diverticulitis symptoms. Patient does complain of associated nausea. Denies vaginal discharge. Denies any diarrhea or GI bleeding. She does feel chilled but denies any subjective fevers. The ROS documented in this emergency department record has been reviewed and confirmed by me. Those systems with pertinent positive or negative responses have been documented in the HPI. All other systems are other negative and/or noncontributory. PHYSICAL EXAM: General Impression: Alert and oriented x3, acute distress secondary to pain HEENT: Normocephalic atraumatic, extra-ocular movements intact, pupils equal and reactive to light bilaterally, mucous membranes moist. Cardiovascular: Heart regular rate and rhythm Chest: Able to complete full sentences, no retractions, no tachypnea Abdomen: abdomen soft, diffuse palpatory tenderness worse in the left lower quadrant non-distended, no organomegaly Musculoskeletal: Pulses present and equal in all extremities, no peripheral edema Motor: no focal deficits noted Neurological: CN II-XII grossly intact, no focal motor or sensory deficits noted Skin: Intact with no visualized rashes ED course: 40-year-old feel presents to the emergency department for abdominal pain. Vital Signs upon arrival are within acceptable limits. Patient appears to be in acute distress. Abdomen dilation obtained. Leukocytosis of 15.8, metabolic panel is within acceptable limits. Patient at 2:40 PM began having sharp chest pain. Repeat vitals were obtained showing stable numbers. Patient states that she feels as though the morphine was not helping with her pain symptoms. She describes the pain as sharp and not worse with deep inspiration. EKG obtained showing no signs of acute cardiac process. Her pain is sharp and atypical. Heart to this patient has been observed to be browsing her phone with no acute issues. EKG interpretation: Ventricular rate 80, normal sinus rhythm, IA interval 146, QRS 82, QTC 410. No IA prolongation, no QTC prolongation, no ST or T-wave changes noted. EKG compared to 09/23/2017 showing no changes. Overall, this EKG is unremarkable (Stan Mojica) - Related Data Previous Rx's Medication Instructions Recorded Amoxicillin/Potassium Clav 1 tab PO Q12HR #20 tab 10/05/20 [Augmentin 875-125 Tablet] Allergies Allergy/AdvReac Type Severity Reaction Status Date / Time No Known Allergies Allergy Verified 10/05/20 12:59 Review of Systems ROS Other: All systems not noted in ROS Statement are negative. <Stan Mojica - Last Filed: 10/05/20 14:52> ROS Other: All systems not noted in ROS Statement are negative. <Qian Ernst - Last Filed: 10/05/20 19:58> ROS Statement: Those systems with pertinent positive or pertinent negative responses have been documented in the HPI. Past Medical History Additional Past Medical History / Comment(s): diverticulitis, hx. colon polyps, recent rectal bleeding since last Monday History of Any Multi-Drug Resistant Organisms: None Reported Past Surgical History: Appendectomy, Breast Surgery, Cholecystectomy, Hysterectomy Additional Past Surgical History / Comment(s): left breast biopsy at 16 yrs old, colonoscopy Past Anesthesia/Blood Transfusion Reactions: No Reported Reaction, Motion Sickness Past Psychological History: No Psychological Hx Reported Smoking Status: Current every day smoker Past Alcohol Use History: None Reported Past Drug Use History: None Reported - Past Family History Mother Family Medical History: No Reported History <Stan Mojica - Last Filed: 10/05/20 14:52> General Exam Limitations: no limitations <Stan Mojica - Last Filed: 10/05/20 14:52> Course Vital Signs 10/05/20 10/05/20 10/05/20 12:59 14:25 15:17 Temperature 98.9 F Pulse Rate 79 79 76 Respiratory 18 20 18 Rate Blood Pressure 123/75 114/87 101/66 O2 Sat by Pulse 97 20 L 100 Oximetry Medical Decision Making - Lab Data Result diagrams: 10/05/20 13:29 10/05/20 12:03 <Stan Mojica - Last Filed: 10/05/20 14:52> - Lab Data Result diagrams: 10/05/20 13:29 10/05/20 12:03 <Qian Ernst - Last Filed: 10/05/20 19:58> - Medical Decision Making The patient was signed out to me by Dr. Mojica. I did review the patient's laboratory studies and imaging. The patient does have sigmoid diverticulitis with a mild leukocytosis. She is reassessed and has improvement in her pain. She is comfortable with discharge at this time. Patient will be placed on Augmentin in the outpatient setting. She was given a dose of Rocephin and Flagyl in the emergency department. Patient is instructed to follow-up with her primary care doctor in 2 to 4 days. Return to the emergency room for any new or worsening symptoms. Patient was discharged home in stable condition (Qian Ernst) - Lab Data Lab Results 10/05/20 10/05/20 Range/Units 12:03 13:29 WBC 15.8 H (3.8-10.6) k/uL RBC 4.91 (3.80-5.40) m/uL Hgb 15.1 (11.4-16.0) gm/dL Hct 45.2 (34.0-46.0) % MCV 91.9 (80.0-100.0) fL MCH 30.7 (25.0-35.0) pg MCHC 33.4 (31.0-37.0) g/dL RDW 13.6 (11.5-15.5) % Plt Count 241 (150-450) k/uL MPV 7.9 Neutrophils % 79 % Lymphocytes % 15 % Monocytes % 4 % Eosinophils % 1 % Basophils % 0 % Neutrophils # 12.5 H (1.3-7.7) k/uL Lymphocytes # 2.4 (1.0-4.8) k/uL Monocytes # 0.6 (0-1.0) k/uL Eosinophils # 0.2 (0-0.7) k/uL Basophils # 0.0 (0-0.2) k/uL Sodium 138 (137-145) mmol/L Potassium 4.0 (3.5-5.1) mmol/L Chloride 109 H (98-107) mmol/L Carbon Dioxide 22 (22-30) mmol/L Anion Gap 7 mmol/L BUN 9 (7-17) mg/dL Creatinine 0.58 (0.52-1.04) mg/dL Est GFR (CKD-EPI)AfAm >90 (>60 ml/min/1.73 sqM) Est GFR (CKD-EPI)NonAf >90 (>60 ml/min/1.73 sqM) Glucose 89 (74-99) mg/dL Calcium 10.2 (8.4-10.2) mg/dL Magnesium 1.9 (1.6-2.3) mg/dL Total Bilirubin 0.5 (0.2-1.3) mg/dL AST 22 (14-36) U/L ALT 13 (4-34) U/L Alkaline Phosphatase 66 (38-126) U/L Total Protein 6.5 (6.3-8.2) g/dL Albumin 4.0 (3.5-5.0) g/dL Lipase 43 (23-300) U/L Disposition <Stan Mojica - Last Filed: 10/05/20 14:52> Is patient prescribed a controlled substance at d/c from ED?: No Time of Disposition: 16:43 <Qian Ernst - Last Filed: 10/05/20 19:58> Clinical Impression: Diverticulitis, Abdominal pain Disposition: HOME SELF-CARE Condition: Stable Instructions (If sedation given, give patient instructions): Diverticulitis (ED) Additional Instructions: Please follow up with your PCP in 2-4 days. Return to the ED for any new or worsening symptoms. Prescriptions: Amoxicillin/Potassium Clav [Augmentin 875-125 Tablet] 1 tab PO Q12HR #20 tab Referrals: Darin Julien MD [Primary Care Provider] - 1-2 days
[2020-10-05 13:38] LABS: Basophils % (A) 0 %; Eosinophils # (A) 0.2 k/uL (0-0.7); Eosinophils % (A) 1 %; HCT 45.2 % (34.0-46.0); HGB 15.1 gm/dL (11.4-16.0); Lymphocytes # (A) 2.4 k/uL (1.0-4.8); Lymphocytes % (A) 15 %; MCH 30.7 pg (25.0-35.0); MCHC 33.4 g/dL (31.0-37.0); MCV 91.9 fL (80.0-100.0); Mean Platelet Volume 7.9; Monocytes # (A) 0.6 k/uL (0-1.0); Monocytes % (A) 4 %; Neutrophils # (A) 12.5 k/uL (1.3-7.7); Neutrophils % (A) 79 %; Platelet Count 241 k/uL (150-450); RBC 4.91 m/uL (3.80-5.40); RDW 13.6 % (11.5-15.5); WBC 15.8 k/uL (3.8-10.6)
[2020-10-05] MEDS ORDERED: HYDROmorphone 1 MG/ML 1 ML SYRINGE IVP PRN (13:45)
[2020-10-05 13:53] LABS: ALT 13 U/L (4-34); African American GFR (CKD) >90 (>60 ml/min/1.73 sqM); Anion Gap 7 mmol/L; Blood Urea Nitrogen 9 mg/dL (7-17); Calcium 10.2 mg/dL (8.4-10.2); Carbon Dioxide 22 mmol/L (22-30); Chloride 109 mmol/L (98-107); Glucose 89 mg/dL (74-99); Lipase 43 U/L (23-300); Non-African American GFR(CKD) >90 (>60 ml/min/1.73 sqM); Sodium 138 mmol/L (137-145); Total Bilirubin 0.5 mg/dL (0.2-1.3); Total Protein 6.5 g/dL (6.3-8.2)
[2020-10-05 14:03] LABS: AST 22 U/L (14-36); Magnesium 1.9 mg/dL (1.6-2.3)
[2020-10-05 14:04] LABS: Alkaline Phosphatase 66 U/L (38-126)
[2020-10-05] MEDS ORDERED: HYDROmorphone 1 MG/ML 1 ML SYRINGE IVP STA (14:40)
--- NOTE | 2020-10-05 15:00 | CT ---
EXAMINATION TYPE: CT abdomen pelvis w con DATE OF EXAM: 10/05/2020 COMPARISON: 09/22/2017 HISTORY: 40-year-old female suspected diverticulitis TECHNIQUE: Contiguous axial scanning of the abdomen and pelvis following administration of 100 ml Iso patrice 300 IV contrast. Delayed images through the kidneys and coronal/sagittal reconstructions perform ed. CT DLP: 912.5 mGycm Automated exposure control for dose reduction was used. FINDINGS: Heart normal size without pericardial effusion. Some patchy medial anterior basilar and right posteri or dependent areas of atelectasis. Small hiatal hernia. Scattered subcentimeter hypodensities in the liver too small for accurate CT characterization, likely cysts. Largest is a cyst measuring 3.4 cm in the right hepatic dome. Portal venous system is patent. Stable mildly dilated bile duct at 9 mm likely secondary to postchole cystectomy status. Adrenal glands, spleen, right kidney, and pancreas within normal limits. A few subcentimeter cortical cysts within the left kidney. No dilated small bowel, free fluid, or free air. No mesenteric or retroperitoneal lymph adenopathy. Surgical material at the cecum suggesting prior appendectomy. There is mild to moderate stool burden. Left-sided colonic diverticulosis. There is moderate wall thickening with surrounding inflammatory f at stranding along the proximal sigmoid colon. Bladder urine distended. Uterus surgically absent. The right ovary is visualized. Left ovary not jovan rly seen. Trace cul-de-sac free fluid. Bones: Right L5 hemisacralization. No osseous destructive process. IMPRESSION: 1. EXAM POSITIVE FOR ACUTE DIVERTICULITIS ALONG THE PROXIMAL SIGMOID COLON. THERE IS MODERATE INFLAMM ATION BUT NO ABSCESS OR FREE AIR. 2. TRACE PELVIC FREE FLUID COULD BE PHYSIOLOGIC OR COULD BE REACTIVE TO THE ABOVE INFLAMMATION. 3. SMALL HIATAL HERNIA.
[2020-10-05 15:19] VITALS: BP 101/66; PULSE 76; RESP 18
--- NOTE | 2020-10-05 15:48 | XR ---
EXAMINATION TYPE: XR chest 2V DATE OF EXAM: 10/05/2020 COMPARISON: 09/23/2017 TECHNIQUE: PA and lateral views submitted. HISTORY: Chest pain FINDINGS: The lungs are clear and there is no pneumothorax, pleural effusion, or focal pneumonia. Heart size normal. No overt failure. Surgical clips in the abdomen. Interstitium mildly coarsened. IMPRESSION: 1. Correlate for mild bronchitis or interstitial pneumonitis..
[2020-10-05] MEDS ORDERED: metroNIDAZOLE 500 MG TAB PO STA (15:49)
[2020-10-05] MEDS ORDERED: cefTRIAXone IN SWFI 1,000 MG/10 ML SYRINGE IVP STA (15:49)
== END 2020-10-05 17:20 | disposition home or self-care (01) ==
LOC: EC 12:25
DX: K57.32 Diverticulitis of large intestine without perforation or abscess without bleeding (principal); F17.200 Nicotine dependence, unspecified, uncomplicated; Z90.49 Acquired absence of other specified parts of digestive tract; Z90.710 Acquired absence of both cervix and uterus
CPT/HCPCS: 99285; 96374; 96375 ×3; 96361; 36415; 93005; 80053; 83690; 83735; 85025; 71046; 74177; J2270; J2405; J0696; J1170; Q9967

== ENCOUNTER 2020-11-19 15:34 | Inpatient (IN) | payer OTHER ==
[2020-11-19] MEDS ORDERED: ONDANSETRON 4 MG/2 ML VIAL IVP STA (16:15)
[2020-11-19] MEDS ORDERED: diphenhydrAMINE 50 MG/ML 1 ML VIAL IVP STA (16:15)
[2020-11-19] MEDS ORDERED: SODIUM CHLORIDE 0.9% 1,000 ML IV STA (16:15)
[2020-11-19] MEDS ORDERED: HYDROmorphone 0.5 MG/0.5 ML SYRINGE IVP STA (16:15)
[2020-11-19 16:40] LABS: Basophils # (A) 0.1 k/uL (0-0.2); Basophils % (A) 1 %; Eosinophils # (A) 0.1 k/uL (0-0.7); Eosinophils % (A) 1 %; HCT 46.1 % (34.0-46.0); HGB 15.3 gm/dL (11.4-16.0); Lymphocytes # (A) 3.1 k/uL (1.0-4.8); Lymphocytes % (A) 28 %; MCH 30.4 pg (25.0-35.0); MCHC 33.2 g/dL (31.0-37.0); MCV 91.7 fL (80.0-100.0); Mean Platelet Volume 8.2; Monocytes # (A) 0.4 k/uL (0-1.0); Monocytes % (A) 4 %; Neutrophils # (A) 7.3 k/uL (1.3-7.7); Neutrophils % (A) 66 %; Platelet Count 294 k/uL (150-450); RBC 5.03 m/uL (3.80-5.40); RDW 13.1 % (11.5-15.5); WBC 11.1 k/uL (3.8-10.6)
[2020-11-19 16:51] LABS: ALT 20 U/L (4-34); AST 32 U/L (14-36); African American GFR (CKD) >90 (>60 ml/min/1.73 sqM); Albumin 4.4 g/dL (3.5-5.0); Alkaline Phosphatase 60 U/L (38-126); Amylase 68 U/L (30-110); Anion Gap 11 mmol/L; Blood Urea Nitrogen 7 mg/dL (7-17); Calcium 10.6 mg/dL (8.4-10.2); Carbon Dioxide 17 mmol/L (22-30); Chloride 109 mmol/L (98-107); Glucose 87 mg/dL (74-99); Lipase 35 U/L (23-300); Non-African American GFR(CKD) >90 (>60 ml/min/1.73 sqM); Sodium 137 mmol/L (137-145); Total Bilirubin 0.6 mg/dL (0.2-1.3); Total Protein 7.3 g/dL (6.3-8.2)
[2020-11-19 16:52] LABS: Potassium 4.6 mmol/L (3.5-5.1)
[2020-11-19 16:56] LABS: INR 0.9 (<1.2); Partial Thromboplastin Time 25.8 sec (22.0-30.0); Prothrombin Time 10.1 sec (9.0-12.0)
--- NOTE | 2020-11-19 17:02 | CT ---
EXAMINATION TYPE: CT abdomen pelvis w con DATE OF EXAM: 11/19/2020 HISTORY: Left lower quadrant pain with nausea and vomiting. CT DLP: 838.3mGycm Automated Exposure Control for Dose Reduction was Utilized. CONTRAST: CT scan of the abdomen and pelvis is performed without oral but with IV Contrast, patient injected wi th 100 mL of Isovue 300. COMPARISON: CT abdomen and pelvis October 05, 2020 FINDINGS: LUNG BASES: No significant abnormality is appreciated. LIVER/GB: Cholecystectomy clips are redemonstrated. Scattered simple appearing thin-walled cysts thro ughout the liver are again seen. Minimal extra hepatic biliary dilatation is stable. PANCREAS: No significant abnormality is seen. SPLEEN: No significant abnormality is seen. ADRENALS: No significant abnormality is seen. KIDNEYS: No significant abnormality is seen. BOWEL: Diverticula scattered throughout the colon. Mild ill-defined fluid and fat stranding left lowe r quadrant the distal left colon consistent with acute diverticulitis with moderate to severe wall th ickening axial image 48 for reference. No free air. No well-formed fluid collection or abscess. UTERUS/ADNEXA: Uterus surgically absent or markedly atrophic. LYMPH NODES: No greater than 1cm abdominal or pelvic lymph nodes are appreciated. OSSEOUS STRUCTURES: Stable mild to moderate disc space narrowing L5-S1 level. OTHER: No significant additional abnormality is seen. IMPRESSION: Mild uncomplicated acute diverticulitis distal left colon level left lower quadrant as de tailed above. This is just proximal to the site of recent diverticulitis on the October [address] CT[address]
[2020-11-19 17:03] LABS: Appearance,Urine Clear (Clear); Bacteria,Urine Few /hpf; Bilirubin,Urine Negative (Negative); Blood,Urine Small (Negative); Color,Urine Light Red; Glucose,Urine (UA) Negative (Negative); Ketones,Urine 3+ (Negative); Leukocyte Esterase,Urine Small (Negative); Mucus,Urine Occasional /hpf; Nitrite,Urine Negative (Negative); PH, Urine 6.5 (5.0-8.0); Protein,Urine Trace (Negative); RBC,Urine 45 /hpf (0-5); Specific Gravity,Urine 1.028 (1.001-1.035); Squamous Epithelial Cell,Urine 3 /hpf (0-4); WBC,Urine 2 /hpf (0-5)
[2020-11-19] MEDS: LEVOFLOXACIN 500MG-D5W PMX 500 MG in DEXTROSE/WATER 1 100ML.BAG IVPB SCH (17:08)
[2020-11-19 17:33] LABS: HCG,Qualitative Serum Not Detected
[2020-11-19] MEDS ORDERED: KETOROLAC 15 MG/ML 1 ML VIAL IVP PRN (17:37)
[2020-11-19] MEDS ORDERED: NALOXONE 0.4 MG/ML 1 ML VIAL IV PRN (17:37)
[2020-11-19] MEDS: metroNIDAZOLE-NS PMX 500 MG in SALINE 1 100ML.BAG IVPB SCH ×2 (17:57→23:08)
[2020-11-19] MEDS: SODIUM CHLORIDE 0.9% 1,000 ML IV SCH (17:57)
--- NOTE | 2020-11-19 18:05 | ED ---
General Adult HPI - General Chief complaint: Abdominal Pain Stated complaint: abd pain Time Seen by Provider: 11/19/20 15:55 Source: patient, RN notes reviewed, old records reviewed Mode of arrival: ambulatory Limitations: no limitations - History of Present Illness Initial comments: I evaluated the patient when she was placed in room. Patient is a 40-year-old female with past medical history remarkable for diverticulosis and diverticulitis who was recently diagnosed with diverticulitis at an outside facility on Monday or Monday of this week, presents emergency department for failed outpatient management. She was diagnosed with uncomplicated dive rticulitis and sent home on antibiotics, ciprofloxacin and Flagyl. She states that over the last day, the pain is worsened and she is been having intractable nausea and vomiting. She is unable to tolerate by mouth intake, including her antibiotics. She is describing left lower quadrant achy abdominal pain that does not radiate. This is her typical pain for her diverticulitis. Denies any dysuria or hematuria. Denies any vaginal discharge or bleeding. Denies any urinary complaints. She has no other acute complaints at this time. She denies any history of abdominal surgeries previously. States she is not .Patient does state she is having slight was softer bowel movements but denies any blood in stool. Less frequency in stooling over the last few days. - Related Data Home Medications Medication Instructions Recorded Confirmed Atorvastatin Calcium [Lipitor] 10 mg PO HS 11/19/20 11/19/20 Ciprofloxacin HCl 500 mg PO BID 11/19/20 11/19/20 Ergocalciferol (Vitamin D2) 1,250 mcg PO RIOS 11/19/20 11/19/20 [Drisdol (50,000 Iu)] HYDROcodone/APAP 5-325MG [[place] 1 tab PO Q4H PRN 11/19/20 11/19/20 5-325] Ondansetron Odt [Zofran Odt] 4 mg PO DAILY PRN 11/19/20 11/19/20 metroNIDAZOLE [Flagyl] 500 mg PO TID 11/19/20 11/19/20 Allergies Allergy/AdvReac Type Severity Reaction Status Date / Time No Known Allergies Allergy Verified 11/19/20 18:09 Review of Systems ROS Statement: Those systems with pertinent positive or pertinent negative responses have been documented in the HPI. Review of Systems: CONST: Denies fever EYES: Denies blurry vision ENT: Denies nasal congestion C/V: Denies Chest pain RESP: Denies shortness of breath GI: Endorses abdominal pain : Denies dysuria SKIN: Denies rash. MSK: Denies joint pain. NEURO: Denies headache ROS Other: All systems not noted in ROS Statement are negative. Past Medical History Additional Past Medical History / Comment(s): diverticulitis, hx. colon polyps, recent rectal bleeding since last Monday History of Any Multi-Drug Resistant Organisms: None Reported Past Surgical History: Appendectomy, Breast Surgery, Cholecystectomy, Hysterectomy Additional Past Surgical History / Comment(s): left breast biopsy at 16 yrs old, colonoscopy Past Anesthesia/Blood Transfusion Reactions: No Reported Reaction, Motion Si ckness Past Psychological History: No Psychological Hx Reported Smoking Status: Current every day smoker Past Alcohol Use History: None Reported Past Drug Use History: None Reported - Past Family History Mother Family Medical History: No Reported History General Exam - General Exam Comments Initial Comments: General: Appears in moderate distress acutely vomiting while I'm in the room. Emesis is nonbilious nonbloody. HEAD: Normal with no signs of head trauma. EYES: PERRLA, EOMI, conjunctiva normal, no discharge. ENT: Hearing grossly intact, normal oropharynx. Dry mucous membranes. RESPIRATORY: Clear breath sounds bilaterally. No wheezes, rales, or rhonchi. C/V: Regular rate and rhythm. S1 and S2 auscultated, no edema, peripheral pulses 2+ and intact throughout ABD: Abdomen is soft, nondistended. Patient is tender to palpation in the left lower quadrant. No guarding. No peritoneal signs. No rebound tenderness. EXT: Normal range of motion, no obvious deformity SKIN: No rashes or lesions observed on exposed skin. NEURO: Alert and oriented 4. Limitations: no limitations Course Vital Signs 11/19/20 11/19/20 15:41 18:06 Temperature 98.4 F Pulse Rate 96 61 Respiratory 19 18 Rate Blood Pressure 104/75 97/63 O2 Sat by Pulse 98 97 Oximetry Medical Decision Making - Medical Decision Making Based on the patient's presentation and physical exam, she is likely experiencing failed outpatient management of an acute uncomplicated diverticulitis. Due to her complaining of worsening pain and symptoms were last few days, we will obtain a repeat CT imaging at this time evaluate for any complicating factors such as abscess. She was in agreement with this plan. Basic laboratory studies will be obtained. She'll be given a 1 L fluid bolus, Dilaudid for pain management, as well as IV Zofran, Benadryl, as well as IV antibiotics levofloxacin and Flagyl. She was in agreement this plan. Patient's lavatory studies are remarkable for mild leukocytosis of 11.1. Lactate is normal. Patient is not . Covid is negative. Patient's urinalysis is remarkable for dehydration with 3+ ketones. Blood is also present. No other acute findings on labs. Patient's CT imaging revealed uncomplicated diverticulitis. On reevaluation, patient is still having nausea and vomiting. Due to her deh ydration, acute diverticulitis, as well as intractable nausea and vomiting, I would like to admitted to the hospital. She was in agreement this plan. We will continue IV antibiotics at this time. I spoke with the patient's admitting physician, Dr. Yuen, who accepted the patient. She was therefore admitted to observation in stable condition. - Lab Data Result diagrams: 11/19/20 16:23 11/19/20 16:23 Lab Results 11/19/20 11/19/20 11/19/20 Range/Units 16:23 16:23 16:23 WBC 11.1 H (3.8-10.6) k/uL RBC 5.03 (3.80-5.40) m/uL Hgb 15.3 (11.4-16.0) gm/dL Hct 46.1 H (34.0-46.0) % MCV 91.7 (80.0-100.0) fL MCH 30.4 (25.0-35.0) pg MCHC 33.2 (31.0-37.0) g/dL RDW 13.1 (11.5-15.5) % Plt Count 294 (150-450) k/uL MPV 8.2 Neutrophils % 66 % Lymphocytes % 28 % Monocytes % 4 % Eosinophils % 1 % Basophils % 1 % Neutrophils # 7.3 (1.3-7.7) k/uL Lymphocytes # 3.1 (1.0-4.8) k/uL Monocytes # 0.4 (0-1.0) k/uL Eosinophils # 0.1 (0-0.7) k/uL Basophils # 0.1 (0-0.2) k/uL PT 10.1 (9.0-12.0) sec INR 0.9 (<1.2) APTT 25.8 (22.0-30.0) sec Sodium (137-145) mmol/L Potassium (3.5-5.1) mmol/L Chloride (98-107) mmol/L Carbon Dioxide (22-30) mmol/L Anion Gap mmol/L BUN (7-17) mg/dL Creatinine (0.52-1.04) mg/dL Est GFR (CKD-EPI)AfAm (>60 ml/min/1.73 sqM) Est GFR (CKD-EPI)NonAf (>60 ml/min/1.73 sqM) Glucose (74-99) mg/dL Plasma Lactic Acid [place] (0.7-2.0) mmol/L Calcium (8.4-10.2) mg/dL Total Bilirubin (0.2-1.3) mg/dL AST (14-36) U/L ALT (4-34) U/L Alkaline Phosphatase (38-126) U/L Total Protein (6.3-8.2) g/dL Albumin (3.5-5.0) g/dL Amylase (30-110) U/L Lipase (23-300) U/L HCG, Qual Urine Color Light Red Urine Appearance Clear (Clear) Urine pH 6.5 (5.0-8.0) Ur Specific [place] 1.028 (1.001-1.035) Urine Protein Trace H (Negative) Urine Glucose (UA) Negative (Negative) Urine Ketones 3+ H (Negative) Urine Blood Small H (Negative) Urine Nitrite Negative (Negative) Urine Bilirubin Negative (Negative) Urine Urobilinogen 3.0 (<2.0) mg/dL Ur Leukocyte Esterase Small H (Negative) Urine RBC 45 H (0-5) /hpf Urine WBC 2 (0-5) /hpf Ur Squamous Epith Cells 3 (0-4) /hpf Urine Bacteria Few H (None) /hpf Urine Mucus Occasional H (None) /hpf Coronavirus (PCR) (Not Detectd) Blood Type Blood Type Recheck Bld Type Recheck Status Antibody Screen Spec Expiration Date 11/19/20 11/19/20 11/19/20 Range/Units 16:23 16:23 16:53 WBC (3.8-10.6) k/uL RBC (3.80-5.40) m/uL Hgb (11.4-16.0) gm/dL Hct (34.0-46.0) % MCV (80.0-100.0) fL MCH (25.0-35.0) pg MCHC (31.0-37.0) g/dL RDW (11.5-15.5) % Plt Count (150-450) k/uL MPV Neutrophils % % Lymphocytes % % Monocytes % % Eosinophils % % Basophils % % Neutrophils # (1.3-7.7) k/uL Lymphocytes # (1.0-4.8) k/uL Monocytes # (0-1.0) k/uL Eosinophils # (0-0.7) k/uL Basophils # (0-0.2) k/uL PT (9.0-12.0) sec INR (<1.2) APTT (22.0-30.0) sec Sodium 137 (137-145) mmol/L Potassium 4.6 (3.5-5.1) mmol/L Chloride 109 H (98-107) mmol/L Carbon Dioxide 17 L (22-30) mmol/L Anion Gap 11 mmol/L BUN 7 (7-17) mg/dL Creatinine 0.65 (0.52-1.04) mg/dL Est GFR (CKD-EPI)AfAm >90 (>60 ml/min/1.73 sqM) Est GFR (CKD-EPI)NonAf >90 (>60 ml/min/1.73 sqM) Glucose 87 (74-99) mg/dL Plasma Lactic Acid [place] 1.6 (0.7-2.0) mmol/L Calcium 10.6 H (8.4-10.2) mg/dL Total Bilirubin 0.6 (0.2-1.3) mg/dL AST 32 (14-36) U/L ALT 20 (4-34) U/L Alkaline Phosphatase 60 (38-126) U/L Total Protein 7.3 (6.3-8.2) g/dL Albumin 4.4 (3.5-5.0) g/dL Amylase 68 (30-110) U/L Lipase 35 (23-300) U/L HCG, Qual Not Detected Urine Color Urine Appearance (Clear) Urine pH (5.0-8.0) Ur Specific [place] (1.001-1.035) Urine Protein (Negative) Urine Glucose (UA) (Negative) Urine Ketones (Negative) Urine Blood (Negative) Urine Nitrite (Negative) Urine Bilirubin (Negative) Urine Urobilinogen (<2.0) mg/dL Ur Leukocyte Esterase (Negative) Urine RBC (0-5) /hpf Urine WBC (0-5) /hpf Ur Squamous Epith Cells (0-4) /hpf Urine Bacteria (None) /hpf Urine Mucus (None) /hpf Coronavirus (PCR) (Not Detectd) Blood Type O Positive Blood Type Recheck O Pos Bld Type Recheck Status No Antibody Screen NEGATIVE Spec Expiration Date 11/22/2020 - 232211/19/20 Range/Units 18:06 WBC (3.8-10.6) k/uL RBC (3.80-5.40) m/uL Hgb (11.4-16.0) gm/dL Hct (34.0-46.0) % MCV (80.0-100.0) fL MCH (25.0-35.0) pg MCHC (31.0-37.0) g/dL RDW (11.5-15.5) % Plt Count (150-450) k/uL MPV Neutrophils % % Lymphocytes % % Monocytes % % Eosinophils % % Basophils % % Neutrophils # (1.3-7.7) k/uL Lymphocytes # (1.0-4.8) k/uL Monocytes # (0-1.0) k/uL Eosinophils # (0-0.7) k/uL Basophils # (0-0.2) k/uL PT (9.0-12.0) sec INR (<1.2) APTT (22.0-30.0) sec Sodium (137-145) mmol/L Potassium (3.5-5.1) mmol/L Chloride (98-107) mmol/L Carbon Dioxide (22-30) mmol/L Anion Gap mmol/L BUN (7-17) mg/dL Creatinine (0.52-1.04) mg/dL Est GFR (CKD-EPI)AfAm (>60 ml/min/1.73 sqM) Est GFR (CKD-EPI)NonAf (>60 ml/min/1.73 sqM) Glucose (74-99) mg/dL Plasma Lactic Acid [place] (0.7-2.0) mmol/L Calcium (8.4-10.2) mg/dL Total Bilirubin (0.2-1.3) mg/dL AST (14-36) U/L ALT (4-34) U/L Alkaline Phosphatase (38-126) U/L Total Protein (6.3-8.2) g/dL Albumin (3.5-5.0) g/dL Amylase (30-110) U/L Lipase (23-300) U/L HCG, Qual Urine Color Urine Appearance (Clear) Urine pH (5.0-8.0) Ur Specific [place] (1.001-1.035) Urine Protein (Negative) Urine Glucose (UA) (Negative) Urine Ketones (Negative) Urine Blood (Negative) Urine Nitrite (Negative) Urine Bilirubin (Negative) Urine Urobilinogen (<2.0) mg/dL Ur Leukocyte Esterase (Negative) Urine RBC (0-5) /hpf Urine WBC (0-5) /hpf Ur Squamous Epith Cells (0-4) /hpf Urine Bacteria (None) /hpf Urine Mucus (None) /hpf Coronavirus (PCR) Not Detected (Not Detectd) Blood Type Blood Type Recheck Bld Type Recheck Status Antibody Screen Spec Expiration Date Disposition Clinical Impression: Diverticulitis, Intractable nausea and vomiting, Dehydration, Ketonuria, Abdominal pain Disposition: ADMITTED IP TO THIS [facility] Condition: Stable Referrals: Darin Julien MD [Primary Care Provider] - 1-2 days
[2020-11-19] MEDS: HYDROmorphone 1 MG/ML 1 ML SYRINGE IVP PRN ×2 (19:34→23:08)
[2020-11-19] MEDS: ONDANSETRON 4 MG/2 ML VIAL IVP PRN (23:08)
[2020-11-20] MEDS: HEPARIN SODIUM,PORCINE/PF 5,000 UNIT/0.5 ML SYRINGE SQ SCH ×3 (00:22→14:41)
[2020-11-20] MEDS: HYDROmorphone 1 MG/ML 1 ML SYRINGE IVP PRN (03:24)
[2020-11-20 03:30] VITALS: RESP 18
[2020-11-20] MEDS: SODIUM CHLORIDE 0.9% 1,000 ML IV SCH (05:41)
[2020-11-20] MEDS: ONDANSETRON 4 MG/2 ML VIAL IVP PRN (06:15)
[2020-11-20] MEDS: LEVOFLOXACIN 500MG-D5W PMX 500 MG in DEXTROSE/WATER 1 100ML.BAG IVPB SCH (08:11)
[2020-11-20] MEDS: metroNIDAZOLE-NS PMX 500 MG in SALINE 1 100ML.BAG IVPB SCH ×2 (08:11→15:15)
[2020-11-20 12:04] VITALS: BP 99/62; PULSE 60; TEMP 98.8
--- NOTE | 2020-11-20 17:11 | P.HPIM ---
History of Present Illness H&P Date: 11/20/20 Chief Complaint: Abdominal pain Known history of diverticular disease, presents the emergency room being evaluated recently diagnosed with diverticulitis diverticulosis Monday or Monday presented to the emergency room department for failed outpatient management, patient started on Flagyl 500 mg daily Levaquin 500 mg daily, just started yesterday and today she is feeling much better no nausea no vomiting no fever no chills no loose stool in fact patient wishes to go home. Review of Systems Constitutional: Reports as per HPI, Reports fatigue, Reports malaise Ears, nose, mouth and throat: Reports as per HPI Cardiovascular: Reports as per HPI Respiratory: Reports as per HPI Gastrointestinal: Reports abdominal pain, Reports bloating, Reports heartburn, Reports indigestion, Reports nausea Genitourinary: Reports as per HPI Integumentary: Reports as per HPI Neurological: Reports as per HPI Psychiatric: Reports as per HPI Past Medical History Additional Past Medical History / Comment(s): diverticulitis, hx. colon polyps, recent rectal bleeding since last Monday History of Any Multi-Drug Resistant Organisms: None Reported Past Surgical History: Appendectomy, Breast Surgery, Cholecystectomy, Hysterectomy Additional Past Surgical History / Comment(s): left breast biopsy at 16 yrs old, colonoscopy Past Anesthesia/Blood Transfusion Reactions: No Reported Reaction, Motion Sickness Past Psychological History: No Psychological Hx Reported Smoking Status: Current every day smoker Past Alcohol Use History: None Reported Additional Past Alcohol Use History / Comment(s): started smoking at age 15,<1ppd Past Drug Use History: None Reported - Past Family History Mother Family Medical History: No Reported History Medications and Allergies Home Medications Medication Instructions Recorded Confirmed Type Atorvastatin Calcium [Lipitor] 10 mg PO HS 11/19/20 11/19/20 History Ciprofloxacin HCl 500 mg PO BID 11/19/20 11/19/20 History Ergocalciferol (Vitamin D2) 1,250 mcg PO RIOS 11/19/20 11/19/20 History [Drisdol (50,000 Iu)] HYDROcodone/APAP 5-325MG [[place] 1 tab PO Q4H PRN 11/19/20 11/19/20 History 5-325] Ondansetron Odt [Zofran Odt] 4 mg PO DAILY PRN 11/19/20 11/19/20 History metroNIDAZOLE [Flagyl] 500 mg PO TID 11/19/20 11/19/20 History Allergies Allergy/AdvReac Type Severity Reaction Status Date / Time No Known Allergies Allergy Verified 11/19/20 18:09 Physical Exam Osteopathic Statement: *. No significant issues noted on an osteopathic structural exam other than those noted in the History and Physical/Consult. Vitals: Vital Signs Temp Pulse Pulse Resp BP BP Pulse Ox 11/20/20 12:03 98.8 F 60 18 99/62 98 11/20/20 08:00 67 18 11/20/20 03:29 97.7 F 67 18 114/74 98 11/19/20 22:24 98.5 F 73 16 111/73 100 11/19/20 20:45 98.2 F 94 20 100/60 97 11/19/20 18:06 61 18 97/63 97 Intake and Output 11/20/20 11/20/20 11/20/20 06:59 14:59 22:59 Intake Total 1100 Balance 1100 Intake: Intake, IV Titration 800 Amount Sodium Chloride 0.9% 1, 700 000 ml @ 75 mls/hr IV . [id number] [facility] Rx#:[id number] metroNIDAZOLE-NS PMX 500 100 mg In Saline 1 100ml.bag @ 100 mls/hr IVPB TID [facility] Rx#:[id number] Oral 300 Other: Voiding Method Toilet # Voids 2 General: [Patient awake, alert and oriented times 3. Patient in no acute distress.] HEENT: [PERRL. EOMI. No pharyngeal erythema or exudate.] Neck: [No adenopathy.] Cardiac: [Heart regular in rate and rhythm. No S3. No S4. No clicks, rubs. No murmur.] Lungs: [Clear to auscultation bilaterally.] Abdomen: [No mass. No organomegaly. Bowel sounds presnt and normoactive in all 4 quadrants. Positive bowel sounds minimal diffuse tenderness mostly on the left moving bowels Extremes: [No edema no cyanosis no claudication normal pulses] : Normal female genitalia Musculoskeletal: [No joint erythema, edema or tenderness.] Skin: Multiple tattoos Neurologic: [No lateralizing deficits. CN II - XII grossly intact.] Lymphatic: [No adenopathy.] Results CBC & Chem 7: 11/19/20 16:23 11/19/20 16:23 Labs: Abnormal Lab Results - Last 24 Hours (Table) 11/19/20 Range/Units 16:23 Urine Protein Trace H (Negative) Urine Ketones 3+ H (Negative) Urine Blood Small H (Negative) Ur Leukocyte Esterase Small H (Negative) Urine RBC 45 H (0-5) /hpf Urine Bacteria Few H (None) /hpf Urine Mucus Occasional H (None) /hpf Thrombosis Risk Factor Assmnt - Choose All That Apply Any of the Below Risk Factors Present?: Yes Each Factor Represents 1 point: Age 41-60 years, Obesity (BMI >25) Other Risk Factors: No Other congenital or acquired thrombophilia - If yes, enter type in comment: No Thrombosis Risk Factor Assessment Total Risk Factor Score: 2 Thrombosis Risk Factor Assessment Level: Low Risk Assessment and Plan (1) Abdominal pain Current Visit: Yes Status: Acute Code(s): R10.9 - UNSPECIFIED ABDOMINAL PAIN SNOMED Code(s): 04454115 (2) Dehydration Current Visit: Yes Status: Acute Code(s): E86.0 - DEHYDRATION SNOMED Code(s): 23144105 (3) Diverticulitis Current Visit: Yes Status: Acute Code(s): K57.92 - DVTRCLI OF INTEST, PART UNSP, W/O PERF OR ABSCESS W/O BLEED SNOMED Code(s): 704593291 (4) Intractable nausea and vomiting Current Visit: Yes Status: Acute Code(s): R11.2 - NAUSEA WITH VOMITING, UNSPECIFIED SNOMED Code(s): 195808616 Plan: Patient has increased fluid input with IV Flagyl IV Levaquin Has by mouth Flagyl 500 mg to be taken twice daily Has Cipro 500 mg at home to be taken twice daily both for 14 days Discuss Metamucil 2 tablespoons in 8 ounces of water or juice by mouth at at bedtime Increase free water intake to 60-80 ounces daily while using Metamucil Patient will be discharged home tonight we'll reevaluate in the office on Monday or Monday Time with Patient: Greater than 30
--- NOTE | 2020-11-20 17:14 | P.DS ---
Providers Date of admission: 11/20/20 14:09 Expected date of discharge: 11/20/20 Attending physician: Vik Yuen Consults: None Primary care physician: Darin Julien - Discharge Diagnosis(es) (1) Abdominal pain Current Visit: Yes Status: Acute (2) Dehydration Current Visit: Yes Status: Acute (3) Diverticulitis Current Visit: Yes Status: Acute (4) Intractable nausea and vomiting Current Visit: Yes Status: Acute Hospital Course: Patient has Flagyl 500 mg 14 day supply to be taken twice daily already at home Patient has ciprofloxacin 500 mg 1 by mouth twice daily 14 day supply also already at home will start tomorrow Metamucil 2 tablespoons 8 ounces of water or juice with the above oral antibiotics 60-80 ounces of free water daily We'll reevaluate in the office Monday or Monday Patient Condition at Discharge: Good Plan - Discharge Summary Discharge Rx Participant: No New Discharge Prescriptions: No Action Atorvastatin Calcium [Lipitor] 10 mg PO HS Ciprofloxacin HCl 500 mg PO BID Ergocalciferol (Vitamin D2) [Drisdol (50,000 Iu)] 1,250 mcg PO RIOS metroNIDAZOLE [Flagyl] 500 mg PO TID Ondansetron Odt [Zofran Odt] 4 mg PO DAILY PRN PRN Reason: Nausea And Vomiting HYDROcodone/APAP 5-325MG [[place] 5-325] 1 tab PO Q4H PRN PRN Reason: Pain Discharge Medication List Atorvastatin Calcium [Lipitor] 10 mg PO HS 11/19/20 [History] Ciprofloxacin HCl 500 mg PO BID 11/19/20 [History] Ergocalciferol (Vitamin D2) [Drisdol (50,000 Iu)] 1,250 mcg PO RIOS 11/19/20 [History] HYDROcodone/APAP 5-325MG [[place] 5-325] 1 tab PO Q4H PRN 11/19/20 [History] Ondansetron Odt [Zofran Odt] 4 mg PO DAILY PRN 11/19/20 [History] metroNIDAZOLE [Flagyl] 500 mg PO TID 11/19/20 [History] Follow up Appointment(s)/Referral(s): Darin Julien MD [Primary Care Provider] - 1-2 days (The office is closed please call and make follow up appointment.)
== END 2020-11-20 17:30 | disposition home or self-care (01) | DRG 392 ==
LOC: EC 15:34 → 6NMEDSUR 17:37 → 5NMEDONC 21:26 → OBSVTOIN 11-20 14:09
PROVIDERS: ADMIT Family Medicine; ATTEND Family Medicine
DX: K57.92 Diverticulitis of intestine, part unspecified, without perforation or abscess without bleeding (principal); K62.5 Hemorrhage of anus and rectum; Z20.822 Contact with and (suspected) exposure to COVID-19; E86.0 Dehydration; F17.200 Nicotine dependence, unspecified, uncomplicated; Z90.710 Acquired absence of both cervix and uterus; Z87.19 Personal history of other diseases of the digestive system; Z79.899 Other long term (current) drug therapy; R11.2 Nausea with vomiting, unspecified
CPT/HCPCS: 36415; 74177; 80053; 81001; 82150; 83605; 83690; 84703; 85025; 85610; 85730; 86850; 86900; 86901; 87040; 87635; 96361; 96374; 96375; 99285

== ENCOUNTER → 2021-01-11 | Outpatient (CLI) | payer OTHER ==
--- NOTE | 2021-01-12 12:06 | MM ---
Reason for exam: screening (asymptomatic). Last mammogram was performed 6 months ago. History: Benign excisional biopsy of the left breast. Took hormonal contraceptives for 1 year. Physical Findings: A clinical breast exam by your physician is recommended on an annual basis and results should be correlated with mammographic findings. MG 3D Screening Mammo W/Cad Bilateral CC and MLO view(s) were taken. Prior study comparison: July 09, 2020, right breast MG 3d diag mammo w/cad RT. December 30, 2019, bilateral MG 3d diag mammo w/cad SURJIT. The breast tissue is heterogeneously dense. This may lower the sensitivity of mammography. There is no discrete abnormality. ASSESSMENT: Negative, BI-RAD 1 RECOMMENDATION: Routine screening mammogram of both breasts in 1 year.
== END | disposition home or self-care (01) ==
LOC: RADMAMWWP 10:46
PROVIDERS: ATTEND Family Medicine
DX: Z12.31 Encounter for screening mammogram for malignant neoplasm of breast (principal)
CPT/HCPCS: 77063; 77067

== ENCOUNTER → 2021-09-20 | Outpatient (CLI) | payer OTHER ==
--- NOTE | 2021-09-20 15:52 | US ---
EXAMINATION TYPE: US extremity nonvasc mass RT DATE OF EXAM: 09/20/2021 COMPARISON: CT 11/19/2020 is reviewed. CLINICAL HISTORY: R22.2 RT FLANK MASS. At patient's palpable 0.7 x 0.6 x 1.1cm isoechoic well circumscribed area. Nodule is nonspecific. The transverse plane potentially this could be a lymph node but is not clearly confirmed in the sagittal plane. Other etiologies remain within the differential. If additional evaluation is required, consider CT. IMPRESSION: 1. Nonspecific nodule at the level of palpable abnormality.
== END | disposition home or self-care (01) ==
LOC: RADUSWWP 15:15
PROVIDERS: ATTEND Family Medicine
DX: R22.2 Localized swelling, mass and lump, trunk (principal)

== ENCOUNTER → 2021-11-01 | Outpatient (CLI) | payer OTHER ==
--- NOTE | 2021-11-01 16:35 | MR ---
EXAMINATION TYPE: MR tspine/lspine wo con DATE OF EXAM: 11/01/2021 COMPARISON: CT abdomen pelvis 11/19/2020 HISTORY: Right lower back pain that radiates down right leg causing numbness for 9 months, lump lower right back, marker placed TECHNIQUE: Multiplanar, multisequence imaging of the thoracic and lumbar spine is performed without I V contrast. FINDINGS: Thoracic spine MRI: Thoracic vertebral bodies show preserved height and alignment is remarkable for s neha curvature. Bone marrow signal is maintained. There is no evident spinal stenosis or foraminal e ncroachment. Thoracic cord signal is maintained. Disc spaces are within normal limits. No significant disc desiccation. Incidental note made of a T2 bright focus, probable cyst within the posterior right lobe of liver roni suring 4 cm. Common bile duct is dilated, correlate for possible postcholecystectomy change. IMPRESSION: There is a scoliotic curvature to the thoracic spine. Lumbar spine MRI: Sagittal images of the lumbar spine show vertebral body heights and alignment to [place] satisfactory. The intervertebral discs demonstrate normal heights and hydration. The conus medu llaris is normal in position and signal. The bone marrow signal intensity is within normal limits. Axial images show no focal disc disease, or facet degenerative change at any lumbar level. There is no spinal canal stenosis, neural foraminal narrowing, or evidence of nerve root compromise. Mild face t arthropathy changes are present IMPRESSION: Negative MRI of the lumbar spine.
== END | disposition home or self-care (01) ==
LOC: RADMRIMAIN 15:06
PROVIDERS: ATTEND Family Medicine
DX: M79.604 Pain in right leg (principal); R22.2 Localized swelling, mass and lump, trunk; R53.1 Weakness; R20.2 Paresthesia of skin
CPT/HCPCS: 72146; 72148

== ENCOUNTER → 2022-01-20 | Outpatient (CLI) | payer OTHER ==
--- NOTE | 2022-01-20 18:57 | MM ---
Reason for Exam: Screening (asymptomatic). Last mammogram was performed 1 year(s) and 1 month(s) ago. Patient History: Menarche at age 13. First Full-Term at age 16. Left ovary removed at age 29. Hysterectomy at age 29. Patient used Hormonal Contraceptives for 1 year. Benign Excisional Biopsy on the left side. Risk Values: [place] 5 year model risk: 0.7%. NCI Lifetime model risk: 8.0%. Prior Study Comparison: 12/30/2019 Bilateral Diagnostic Mammogram, [facility]. 07/09/2020 Right Diagnostic Mammogram, [facility]. 01/11/2021 Bilateral Screening Mammogram, [facility]. Tissue Density: The breast tissue is heterogeneously dense. This may lower the sensitivity of mammography. Findings: Analyzed By CAD. There is no suspicious group of microcalcifications or new suspicious mass in either breast. Overall Assessment: Negative, BI-RAD 1 Management: Screening Mammogram of both breasts in 1 year. 1. Patient should continue monthly self breast exams. 2. A clinical breast exam by your physician is recommended on an annual basis. 3. This exam should not preclude additional follow-up of suspicious palpable abnormalities. Electronically signed and approved by: Serjio Owusu M.D. Radiologist
== END | disposition home or self-care (01) ==
LOC: RADMAMWWP 06:51
PROVIDERS: ATTEND Family Medicine
DX: Z12.31 Encounter for screening mammogram for malignant neoplasm of breast (principal); Z98.890 Other specified postprocedural states
CPT/HCPCS: 77063; 77067

== ENCOUNTER → 2022-06-14 | Outpatient (CLI) | payer OTHER ==
--- NOTE | 2022-06-14 08:22 | US ---
EXAMINATION TYPE: US pelvic complete DATE OF EXAM: 06/14/2022 COMPARISON: 11/19/2020 CLINICAL INDICATION: Female, 42 years old with history of R10.31 RT LOWER QUAD PAIN; Patient states h aving right groin side pain. Uterus and left ovary removed. TECHNIQUE: Transabdominal (TA). Transabdominal sonographic images of the pelvis were acquired. Date of LMP: Unknown EXAM MEASUREMENTS: Right Ovary: 2.6 x 1.9 x 1.0 cm 1. Uterus: Surgically absent 2. Endometrium: Surgically absent 3. Right Ovary: wnl 4. Left Ovary: Surgically absent 5. Bilateral Adnexa: wnl 6. Posterior cul-de-sac: no free fluid Right groin visualized at area of concern. No abnormality visualized. Valsalva performed. IMPRESSION: 1. Right groin did not demonstrate evidence for hernia. 2. Surgically absent uterus. 3. No obvious organizing fluid collection or mass.
--- NOTE | 2022-06-14 09:00 | US ---
EXAMINATION TYPE: US abdomen complete DATE OF EXAM: 06/14/2022 COMPARISON: 03/01/2017 and 11/19/2020. CLINICAL INDICATION: Female, 42 years old with history of R10.31 RT LOWER QUAD PAIN; CT showed liver cysts. GB removed. TECHNIQUE: Multiple sonographic images of the abdomen are obtained. FINDINGS: EXAM MEASUREMENTS: Liver Length: 16.0 cm CBD: 0.7 cm CHD: 0.6 cm Spleen: 9.3 cm Right Kidney: 9.1 x 4.6 x 4.1 cm Left Kidney: 10.9 x 4.7 x 5.4 cm Pancreas: Echogenic in appearance, limited visualization of tail due to bowel gas Liver: Two liver cysts visualized in right lobe. Largest in right posterior lobe, complex = 4.3 x 4 .6 x 2.9 cm. Previously measuring up 2.7 cm in 2018. Gallbladder: Surgically absent Evidence for sonographic Singh's sign: neg CBD: wnl CHD: wnl Spleen: wnl Right Kidney: medial anechoic lesion at hilum = 1.0 x 0.5 cm Left Kidney: lateral mid cortical cyst with echogenic focus, twinkling artifact seen = 0.8 x 0.8 x 0 .7 cm Upper IVC: wnl Abd Aorta: No AAA visualized at time of scan The intrahepatic portion of the IVC and proximal abdominal aorta are within normal limits. There is no evidence of cholelithiasis. Common bile duct is unremarkable. The visualized portions of the knight creas are homogenous. The spleen is unremarkable. Kidneys are symmetric and free of hydronephrosis. No renal lesions are seen. IMPRESSION: 1. No evidence for acute process. 2. Hepatic cysts one of which has thin septations. This is seen dating back to prior CT on 11/19/2020 . It appears mildly larger from 03/01/2017.
== END | disposition home or self-care (01) ==
LOC: RADUSWWP 06:58
PROVIDERS: ATTEND Family Medicine
DX: K76.89 Other specified diseases of liver (principal); Z90.49 Acquired absence of other specified parts of digestive tract; Z90.721 Acquired absence of ovaries, unilateral; Z90.710 Acquired absence of both cervix and uterus
CPT/HCPCS: 76700; 76856

== ENCOUNTER → 2022-06-27 | Outpatient (CLI) | payer OTHER ==
--- NOTE | 2022-06-27 08:47 | CT ---
EXAMINATION TYPE: CT abdomen pelvis wo con DATE OF EXAM: 06/27/2022 COMPARISON: 11/19/2020 HISTORY: abd pain CT DLP: 225.3 mGycm Automated exposure control for dose reduction was used. TECHNIQUE: Helical acquisition of images was performed from the lung bases through the pelvis. FINDINGS: The lungs are clear. There are surgical absence of the gallbladder. There is no biliary ductal dilatation. There is no organomegaly of the liver, pancreas, spleen or adrenal glands. There are stable hepatic c ysts. There are no renal calcifications or hydronephrosis. The caliber of the abdominal aorta is normal and there is no retroperitoneal adenopathy or hemorrhage . The bowel loops are normal in caliber is no evidence of obstruction. No inflammatory changes are iden tified in the mesentery and there is no free intraperitoneal air or fluid. There is marked diverticul osis of the colon. There are postsurgical changes consistent with history of appendectomy. There is no pelvic mass, free fluid, abscess or adenopathy. There are surgical absence of the uterus. The osseous structures and soft tissues are unremarkable. IMPRESSION: 1. Status post cholecystectomy, appendectomy and hysterectomy. 2. Marked diverticulosis. 3. No acute changes within the abdomen or pelvis.
== END | disposition home or self-care (01) ==
LOC: RADCTMAIN 07:41
PROVIDERS: ATTEND Family Medicine
DX: K57.30 Diverticulosis of large intestine without perforation or abscess without bleeding (principal); Z90.49 Acquired absence of other specified parts of digestive tract; Z90.710 Acquired absence of both cervix and uterus
CPT/HCPCS: 74176

== ENCOUNTER 2022-09-13 11:19 | Emergency (ER) | payer OTHER ==
[2022-09-13 12:17] VITALS: TEMP 98
[2022-09-13 13:18] LABS: Basophils % (A) 1 %; Eosinophils # (A) 0.1 k/uL (0-0.7); Eosinophils % (A) 1 %; HCT 38.9 % (34.0-46.0); HGB 13.3 gm/dL (11.4-16.0); Lymphocytes # (A) 2.4 k/uL (1.0-4.8); Lymphocytes % (A) 34 %; MCH 30.5 pg (25.0-35.0); MCHC 34.2 g/dL (31.0-37.0); MCV 89.3 fL (80.0-100.0); Mean Platelet Volume 8.1; Monocytes # (A) 0.3 k/uL (0-1.0); Monocytes % (A) 4 %; Neutrophils % (A) 59 %; Platelet Count 243 k/uL (150-450); RBC 4.36 m/uL (3.80-5.40); RDW 12.9 % (11.5-15.5); WBC 6.8 k/uL (3.8-10.6)
[2022-09-13 13:19] LABS: Appearance,Urine Clear (Clear); Bilirubin,Urine Negative (Negative); Blood,Urine Negative (Negative); Color,Urine Light Yellow; Glucose,Urine (UA) Negative (Negative); Ketones,Urine Negative (Negative); Leukocyte Esterase,Urine Negative (Negative); Nitrite,Urine Negative (Negative); Protein,Urine Negative (Negative); Specific Gravity,Urine 1.007 (1.001-1.035); Urobilinogen,Urine <2.0 mg/dL (<2.0)
[2022-09-13 13:38] LABS: ALT 17 U/L (4-34); AST 23 U/L (14-36); African American GFR (CKD) >90 (>60 ml/min/1.73 sqM); Albumin 3.9 g/dL (3.5-5.0); Alkaline Phosphatase 67 U/L (38-126); Amylase 81 U/L (30-110); Anion Gap 5 mmol/L; Blood Urea Nitrogen 7 mg/dL (7-17); Calcium 9.5 mg/dL (8.4-10.2); Carbon Dioxide 22 mmol/L (22-30); Chloride 111 mmol/L (98-107); Glucose 91 mg/dL (74-99); Lipase 79 U/L (23-300); Non-African American GFR(CKD) >90 (>60 ml/min/1.73 sqM); Potassium 4.1 mmol/L (3.5-5.1); Sodium 138 mmol/L (137-145); Total Bilirubin 0.4 mg/dL (0.2-1.3); Total Protein 6.7 g/dL (6.3-8.2)
--- NOTE | 2022-09-13 14:38 | US ---
EXAMINATION TYPE: US groin RT DATE OF EXAM: 09/13/2022 COMPARISON: NONE CLINICAL INDICATION: Female, 42 years old with history of rt sided pain and bulge; Right groin painfu l bulge x couple months Right groin: 0.5cm hypoechoic area seen that increases with valsalva at patient's area of pain IMPRESSION: 1. There is a nonspecific 0.5 cm hypoechoic area in the region of the right groin to small characteri ze. Correlate with pelvic CT as clinically warranted.
--- NOTE | 2022-09-13 15:36 | CT ---
EXAMINATION TYPE: CT abdomen pelvis w con CT DLP: 640.3 mGycm, Automated exposure control for dose reduction was used. DATE OF EXAM: 09/13/2022 3:24 PM COMPARISON: CT abdomen pelvis most recent from 06/27/2022. CLINICAL INDICATION:Female, 42 years old with history of rt groin pain; Rt groin pain TECHNIQUE: Standard CT of the abdomen and pelvis following the administration of 100 cc of Isovue 3 00 IV contrast material. Coronal and sagittal reformats were performed. FINDINGS: LOWER CHEST: Unremarkable ABDOMEN LIVER: There are 2 cysts identified within the right hepatic lobe with largest in the dome measuring up to 4 cm. GALLBLADDER AND BILE DUCTS: The gallbladder is surgically absent. Extrahepatic biliary ductal dilatat ion which isn't unexpected in the setting of cholecystectomy. PANCREAS: Unremarkable. SPLEEN: Unremarkable. ADRENAL GLANDS: Unremarkable. KIDNEYS AND URETERS: No evidence of hydronephrosis or renal calculus. The kidneys enhance symmetrical ly. Contrast is demonstrated within both collecting systems on delayed phase. Stable 2 left renal sub centimeter cysts. PELVIS BLADDER: Unremarkable REPRODUCTIVE: The uterus is surgically absent. ABDOMEN & PELVIS STOMACH AND BOWEL: Stomach and duodenum are unremarkable. Distal colonic diverticulosis without evide nce for acute diverticulitis. No focal bowel wall thickening or surrounding inflammatory changes. Pos tsurgical changes from appendectomy. No evidence of bowel obstruction. PERITONEUM: No evidence of pneumoperitoneum or free fluid. VASCULATURE: No evidence of aortic aneurysm. MUSCULOSKELETAL: No acute osseous abnormalities LYMPH NODES: No gross evidence for lymphadenopathy. SOFT TISSUE/ABDOMINAL WALL: Small fat filled right inguinal hernia is unchanged. IMPRESSION: 1. No acute abdominal/pelvic process. 2. Colonic diverticulosis without evidence for acute diverticulitis. 3. Small fat filled right inguinal hernia is unchanged.
--- NOTE | 2022-09-13 15:50 | ED ---
General Adult HPI - General Chief complaint: Abdominal Pain Stated complaint: hernia Time Seen by Provider: 09/13/22 12:22 Source: patient, RN notes reviewed Mode of arrival: ambulatory Limitations: no limitations - History of Present Illness Initial comments: 42-year-old female presents to the emergency department with chief complaint of right sided groin pain and bulge. She states that she was assessed for a hernia in the past with ultrasounds and CT scans that she states were negative. She reports that she was standing a lot this weekend more than usual she reports increased pain. She reports that she feels a bulge in her right groin. She re ports that she is able to push it in and feels better. She reports normal bowel movements and passing gas. Denies fever, chills, nausea, vomiting. - Related Data Home Medications Medication Instructions Recorded Confirmed Atorvastatin Calcium [Lipitor] 10 mg PO HS 11/19/20 11/19/20 Ciprofloxacin HCl 500 mg PO BID 11/19/20 11/19/20 Ergocalciferol (Vitamin D2) 1,250 mcg PO RIOS 11/19/20 11/19/20 [Drisdol (50,000 Iu)] HYDROcodone/APAP 5-325MG [[place] 1 tab PO Q4H PRN 11/19/20 11/19/20 5-325] Ondansetron Odt [Zofran Odt] 4 mg PO DAILY PRN 11/19/20 11/19/20 metroNIDAZOLE [Flagyl] 500 mg PO TID 11/19/20 11/19/20 Allergies Allergy/AdvReac Type Severity Reaction Status Date / Time No Known Allergies Allergy Verified 09/13/22 12:18 Review of Systems ROS Statement: Those systems with pertinent positive or pertinent negative responses have been documented in the HPI. ROS Other: All systems not noted in ROS Statement are negative. Past Medical History Additional Past Medical History / Comment(s): diverticulitis, hx. colon polyps, recent rectal bleeding since last Monday, IBS History of Any Multi-Drug Resistant Organisms: None Reported Past Surgical History: Appendectomy, Breast Surgery, Cholecystectomy, Hysterectomy Additional Past Surgical History / Comment(s): left breast biopsy at 16 yrs old, colonoscopy Past Anesthesia/Blood Transfusion Reactions: No Reported Reaction, Motion Sickness Past Psychological History: No Psychological Hx Reported Smoking Status: Current every day smoker Past Alcohol Use History: None Reported Past Drug Use History: None Reported - Past Family History Mother Family Medical History: No Reported History General Exam Limitations: no limitations General appearance: alert, in no apparent distress Head exam: Present: atraumatic, normocephalic, normal inspection Eye exam: Present: normal appearance ENT exam: Present: normal exam, mucous membranes moist Neck exam: Present: normal inspection. Absent: tenderness, meningismus, lymphadenopathy Respiratory exam: Present: normal lung sounds bilaterally. Absent: respiratory distress, wheezes, rales, rhonchi, stridor Cardiovascular Exam: Present: regular rate, normal rhythm, normal heart sounds. Absent: systolic murmur, diastolic murmur, rubs, gallop, clicks GI/Abdominal exam: Present: soft, normal bowel sounds, hernia (right groin). Absent: distended, tenderness, guarding, rebound, rigid Extremities exam: Present: normal inspection, full ROM, normal capillary refill. Absent: tenderness, pedal edema, joint swelling, calf tenderness Back exam: Present: normal inspection Neurological exam: Present: alert, oriented X3 Psychiatric exam: Present: normal affect, normal mood Skin exam: Present: warm, dry, intact, normal color. Absent: rash Course Vital Signs 09/13/22 09/13/22 09/13/22 12:13 14:16 16:04 Temperature 98.0 F Pulse Rate 61 56 L 59 L Respiratory 20 17 18 Rate Blood Pressure 125/81 116/81 O2 Sat by Pulse 98 100 Oximetry Medical Decision Making - Medical Decision Making Was pt. sent in by a medical professional or institution (, PA, HEALTH RECORDS TECHNOLOGY TEACHER, urgent care, hospital, or half-way...) When possible be specific @ -No Did you speak to anyone other than the patient for history (EMS, parent, family, police, friend...)? What history was obtained from this source @ -No Did you review nursing and triage notes (agree or disagree)? Why? @ -I reviewed and agree with nursing and triage notes Were old charts reviewed (outside hosp., previous admission, EMS record, old EKG, old radiological studies, urgent care reports/EKG's, half-way records)? Report findings @ -No old charts were reviewed Differential Diagnosis (chest pain, altered mental status, abdominal pain women, abdominal pain men, vaginal bleeding, weakness, fever, dyspnea, syncope, headache, dizziness, GI bleed, back pain, seizure, CVA, palpatations, mental health, musculoskeletal)? @ -Differential Abdominal Pain Women: Appendicitis, Cholecystitis, diverticulosis, ischemic bowel, pancreatitis, hepatitis, UTI, gastroenteritis, AAA, incarcerated hernia, bowel obstruction, constipation, inflammatory bowel, hepatitis, peptic ulcer disease, splenic infarction, perforated viscus, vulvitis, ovarian torsion, PID, kidney stone, placenta abruption, this is not meant to be an all-inclusive list EKG interpreted by me (3pts min.). @ -None X-rays interpreted by me (1pt min.). @ -None done CT interpreted by me (1pt min.). @ -CT abdomen and pelvis showed hernia with no change from prior ct U/S interpreted by me (1pt. min.). @ -Ultrasound shows 0.5 cm nonspecific hypoechoic area interpreted by radiology What testing was considered but not performed or refused? (CT, X-rays, U/S, labs)? Why? @ -None What meds were considered but not given or refused? Why? @ -None Did you discuss the management of the patient with other professionals (professionals i.e. , PA, HEALTH RECORDS TECHNOLOGY TEACHER, lab, RT, psych nurse, social work coordinator, traffic recorder, teacher, disabilities services officer, corrections caseworker)? Give summary @ -No Was smoking cessation discussed for >3mins.? @ -No Was critical care preformed (if so, how long)? @ -No Were there social determinants of health that impacted care today? How? (Homelessness, low income, unemployed, alcoholism, drug addiction, esqueda sportation, low edu. Level, literacy, decrease access to med. care, correction, rehab)? @ -No Was there de-escalation of care discussed even if they declined (Discuss DNR or withdrawal of care, Hospice)? DNR status @ -No What co-morbidities impacted this encounter? (DM, HTN, Smoking, COPD, CAD, Cancer, CVA, ARF, Chemo, Hep., AIDS, mental health diagnosis, sleep apnea, morbid obesity)? @ -None Was patient admitted / discharged? Hospital course, mention meds given and route, prescriptions, significant lab abnormalities, going to OR and other pertinent info. @ -Discharged. Patient presented to emergency department chief complaint of right groin pain and bulge worsening over the weekend. Patient reports normal bowel movements without nausea, vomiting. CT abdomen and pelvis showed a non- strangulated, non-incarcerated hernia. Patient did not want anything for pain in the emergency department. CBC, CMP, UA within normal limits. Patient advised to alternate Tylenol and Motrin as needed for pain and follow-up with her primary care provider. Patient stable at time of discharge. Case discussed with my attending, Dr. Peacock Undiagnosed new problem with uncertain prognosis? @ -No Drug Therapy requiring intensive monitoring for toxicity (Heparin, Nitro, Insulin, Cardizem)? @ -No Were any procedures done? @ -No Diagnosis/symptom? @ -nonincarcerated, nonstrangulated hernia Acute, or Chronic, or Acute on Chronic? @ -acute Uncomplicated (without systemic symptoms) or Complicated (systemic symptoms)? @ -uncomplicated Side effects of treatment? @ -No Exacerbation, Progression, or Severe Exacerbation? @ -No Poses a threat to life or bodily function? How? (Chest pain, USA, MS, pneumonia, PE, COPD, DKA, ARF, appy, cholecystitis, CVA, Diverticulitis, Homicidal, Suicidal, threat to staff... and all critical care pts) @ -No - Lab Data Result diagrams: 09/13/22 13:00 09/13/22 13:00 Lab Results 09/13/22 09/13/22 09/13/22 Range/Units 13:00 13:00 13:00 WBC 6.8 (3.8-10.6) k/uL RBC 4.36 (3.80-5.40) m/uL Hgb 13.3 (11.4-16.0) gm/dL Hct 38.9 (34.0-46.0) % MCV 89.3 (80.0-100.0) fL MCH 30.5 (25.0-35.0) pg MCHC 34.2 (31.0-37.0) g/dL RDW 12.9 (11.5-15.5) % Plt Count 243 (150-450) k/uL MPV 8.1 Neutrophils % 59 % Lymphocytes % 34 % Monocytes % 4 % Eosinophils % 1 % Basophils % 1 % Neutrophils # 4.0 (1.3-7.7) k/uL Lymphocytes # 2.4 (1.0-4.8) k/uL Monocytes # 0.3 (0-1.0) k/uL Eosinophils # 0.1 (0-0.7) k/uL Basophils # 0.0 (0-0.2) k/uL Sodium 138 (137-145) mmol/L Potassium 4.1 (3.5-5.1) mmol/L Chloride 111 H (98-107) mmol/L Carbon Dioxide 22 (22-30) mmol/L Anion Gap 5 mmol/L BUN 7 (7-17) mg/dL Creatinine 0.54 (0.52-1.04) mg/dL Est GFR (CKD-EPI)AfAm >90 (>60 ml/min/1.73 sqM) Est GFR (CKD-EPI)NonAf >90 (>60 ml/min/1.73 sqM) Glucose 91 (74-99) mg/dL Plasma Lactic Acid [place] (0.7-2.0) mmol/L Calcium 9.5 (8.4-10.2) mg/dL Total Bilirubin 0.4 (0.2-1.3) mg/dL AST 23 (14-36) U/L ALT 17 (4-34) U/L Alkaline Phosphatase 67 (38-126) U/L Total Protein 6.7 (6.3-8.2) g/dL Albumin 3.9 (3.5-5.0) g/dL Amylase 81 (30-110) U/L Lipase 79 (23-300) U/L Urine Color Light Yellow Urine Appearance Clear (Clear) Urine pH 6.0 (5.0-8.0) Ur Specific [place] 1.007 (1.001-1.035) Urine Protein Negative (Negative) Urine Glucose (UA) Negative (Negative) Urine Ketones Negative (Negative) Urine Blood Negative (Negative) Urine Nitrite Negative (Negative) Urine Bilirubin Negative (Negative) Urine Urobilinogen <2.0 (<2.0) mg/dL Ur Leukocyte Esterase Negative (Negative) 09/13/22 Range/Units 13:00 WBC (3.8-10.6) k/uL RBC (3.80-5.40) m/uL Hgb (11.4-16.0) gm/dL Hct (34.0-46.0) % MCV (80.0-100.0) fL MCH (25.0-35.0) pg MCHC (31.0-37.0) g/dL RDW (11.5-15.5) % Plt Count (150-450) k/uL MPV Neutrophils % % Lymphocytes % % Monocytes % % Eosinophils % % Basophils % % Neutrophils # (1.3-7.7) k/uL Lymphocytes # (1.0-4.8) k/uL Monocytes # (0-1.0) k/uL Eosinophils # (0-0.7) k/uL Basophils # (0-0.2) k/uL Sodium (137-145) mmol/L Potassium (3.5-5.1) mmol/L Chloride (98-107) mmol/L Carbon Dioxide (22-30) mmol/L Anion Gap mmol/L BUN (7-17) mg/dL Creatinine (0.52-1.04) mg/dL Est GFR (CKD-EPI)AfAm (>60 ml/min/1.73 sqM) Est GFR (CKD-EPI)NonAf (>60 ml/min/1.73 sqM) Glucose (74-99) mg/dL Plasma Lactic Acid [place] 0.9 (0.7-2.0) mmol/L Calcium (8.4-10.2) mg/dL Total Bilirubin (0.2-1.3) mg/dL AST (14-36) U/L ALT (4-34) U/L Alkaline Phosphatase (38-126) U/L Total Protein (6.3-8.2) g/dL Albumin (3.5-5.0) g/dL Amylase (30-110) U/L Lipase (23-300) U/L Urine Color Urine Appearance (Clear) Urine pH (5.0-8.0) Ur Specific [place] (1.001-1.035) Urine Protein (Negative) Urine Glucose (UA) (Negative) Urine Ketones (Negative) Urine Blood (Negative) Urine Nitrite (Negative) Urine Bilirubin (Negative) Urine Urobilinogen (<2.0) mg/dL Ur Leukocyte Esterase (Negative) Disposition Clinical Impression: Inguinal hernia of right side without obstruction or gangrene Disposition: HOME SELF-CARE Condition: Stable Instructions (If sedation given, give patient instructions): Inguinal Hernia (ED) Additional Instructions: Please return to the emergency department for new or worsening symptoms. Is patient prescribed a controlled substance at d/c from ED?: No Referrals: Darin Julien MD [Primary Care Provider] - 1-2 days Time of Disposition: 15:50
[2022-09-13 16:06] VITALS: BP 116/81; PULSE 59; RESP 18
== END 2022-09-13 16:05 | disposition home or self-care (01) ==
LOC: EC 11:19
DX: K40.90 Unilateral inguinal hernia, without obstruction or gangrene, not specified as recurrent (principal); F17.200 Nicotine dependence, unspecified, uncomplicated
CPT/HCPCS: 36415; 80053; 82150; 83605; 83690; 85025; 81003; 76882; 74177; 99284; Q9967

== ENCOUNTER 2022-09-17 07:19 | Emergency (ER) | payer OTHER ==
[2022-09-17] MEDS ORDERED: MORPHINE SULFATE 2 MG/ML SYRINGE IV STA (07:58)
[2022-09-17] MEDS ORDERED: SODIUM CHLORIDE 0.9% 1,000 ML IV STA (07:58)
[2022-09-17] MEDS ORDERED: ONDANSETRON 4 MG/2 ML VIAL IVP STA (07:58)
--- NOTE | 2022-09-17 08:01 | ED ---
General Adult HPI - General Chief complaint: Abdominal Pain Stated complaint: nausea, abd pain Time Seen by Provider: 09/17/22 07:33 Source: patient Mode of arrival: ambulatory Limitations: no limitations - History of Present Illness Initial comments: Dictation was produced using [employer] dictation software. please excuse any grammatical, word or spelling errors. Chief Complaint: 42-year-old female presents emergency Department with abdominal pain History of Present Illness: She is a 42-year-old female presents to the emergency room with abdominal pain she was here 4 days ago was diagnosed with hernia. Patient has a right groin hernia that was diagnosed 2 weeks ago by her primary care doctor. Patient states that her pain is intractable. Yesterday she noticed a large bulge in her right groin. Shortly after the bulge was no ticed she started to have nausea vomiting. Patient denies any fever or constitutional symptoms. States that the bulge isn't present. It is reducible especially when she lays flat. at the bedside states that patient is in extreme pain. The ROS documented in this emergency department record has been reviewed and confirmed by me. Those systems with pertinent positive or negative responses have been documented in the HPI. All other systems are other negative and/or noncontributory. - Related Data Home Medications Medication Instructions Recorded Confirmed Atorvastatin Calcium [Lipitor] 10 mg PO HS 11/19/20 11/19/20 Ciprofloxacin HCl 500 mg PO BID 11/19/20 11/19/20 Ergocalciferol (Vitamin D2) 1,250 mcg PO RIOS 11/19/20 11/19/20 [Drisdol (50,000 Iu)] HYDROcodone/APAP 5-325MG [Rufe 1 tab PO Q4H PRN 11/19/20 11/19/20 5-325] Ondansetron Odt [Zofran Odt] 4 mg PO DAILY PRN 11/19/20 11/19/20 metroNIDAZOLE [Flagyl] 500 mg PO TID 11/19/20 11/19/20 Allergies Allergy/AdvReac Type Severity Reaction Status Date / Time hydrocodone Allergy Chest Pain Verified 09/17/22 08:31 Review of Systems ROS Statement: Those systems with pertinent positive or pertinent negative responses have been documented in the HPI. ROS Other: All systems not noted in ROS Statement are negative. Past Medical History Additional Past Medical History / Comment(s): diverticulitis, hx. colon polyps, recent rectal bleeding since last Monday, IBS,rt inguinal hernia History of Any Multi-Drug Resistant Organisms: None Reported Past Surgical History: Appendectomy, Breast Surgery, Cholecystectomy, Hysterectomy Additional Past Surgical History / Comment(s): left breast biopsy at 16 yrs old, colonoscopy Past Anesthesia/Blood Transfusion Reactions: No Reported Reaction, Motion Sickness Past Psychological History: No Psychological Hx Reported Smoking Status: Current every day smoker Past Alcohol Use History: None Reported Past Drug Use History: None Reported - Past Family History Mother Family Medical History: No Reported History General Exam - General Exam Comments Initial Comments: PHYSICAL EXAM: General Impression: Alert and oriented x3, acute distress secondary to pain HEENT: Normocephalic atraumatic, extra-ocular movements intact, pupils equal and reactive to light bilaterally, mucous membranes moist. Cardiovascular: Heart regular rate and rhythm Chest: Able to complete full sentences, no retractions, no tachypnea Abdomen: abdomen soft, groin hernia felt with Valsalva, non-distended, no organomegaly Musculoskeletal: Pulses present and equal in all extremities, no peripheral edema Motor: no focal deficits noted Neurological: CN II-XII grossly intact, no focal motor or sensory deficits noted Skin: Intact with no visualized rashes Psych: Normal affect and mood Limitations: no limitations Course Vital Signs 09/17/22 09/17/22 07:22 09:47 Temperature 98.3 F 98.1 F Pulse Rate 84 58 L Respiratory 20 16 Rate Blood Pressure 110/72 92/54 O2 Sat by Pulse 99 97 Oximetry Medical Decision Making - Medical Decision Making Was pt. sent in by a medical professional or institution (Dr. PA, MANAGER JAVA, urgent care, hospital, or prison...) When possible be specific @ -No Did you speak to anyone other than the patient for history (EMS, parent, family, police, friend...)? What history was obtained from this source @ -No Did you review nursing and triage notes (agree or disagree)? Why? @ -I reviewed and agree with nursing and triage notes Were old charts reviewed (outside hosp., previous admission, EMS record, old EKG, old radiological studies, urgent care reports/EKG's, prison records)? Report findings @ -No old charts were reviewed Differential Diagnosis (chest pain, altered mental status, abdominal pain women, abdominal pain men, vaginal bleeding, musculoskeletal, weakness, fever, dyspnea, syncope, headache, dizziness, GI bleed, back pain, seizure, CVA, palpatations, mental health)? @ -Differential Abdominal Pain Women: Appendicitis, Cholecystitis, diverticulosis, ischemic bowel, pancreatitis, hepatitis, UTI, gastroenteritis, AAA, incarcerated hernia, bowel obstruction, constipation, inflammatory bowel, hepatitis, peptic ulcer disease, splenic infarction, perforated viscus, vulvitis, ovarian torsion, PID, kidney stone, placenta abruption, this is not meant to be an all-inclusive list EKG interpreted by me (3pts min.). @ -None done X-rays interpreted by me (1pt min.). @ -Abdominal x-rays unremarkable for acute processes CT interpreted by me (1pt min.). @ -None done U/S interpreted by me (1pt. min.). @ -None done What testing was considered but not performed or refused? (CT, X-rays, U/S, labs)? Why? @ -None What meds were considered but not given or refused? Why? @ -None Did you discuss the management of the patient with other professionals (professionals i.e. , PA, MANAGER JAVA, lab, RT, psych nurse, criminal justice social worker, fire control system installer, teacher, investigation officer, assistant case manager)? Give summary @ -No Was smoking cessation discussed for >3mins.? @ -No Was critical care preformed (if so, how long)? @ -No Were there social determinants of health that impacted care today? How? (Homelessness, low income, unemployed, alcoholism, drug addiction, transportation, low edu. Level, literacy, decrease access to med. care, half-way, rehab)? @ -No Was there de-escalation of care discussed even if they declined (Discuss DNR or withdrawal of care, Hospice)? DNR status @ -No What co-morbidities impacted this encounter? (DM, HTN, Smoking, COPD, CAD, Cancer, CVA, ARF, Chemo, Hep., AIDS, mental health diagnosis, sleep apnea, morbid obesity)? @ -None Was patient admitted / discharged? Hospital course, mention meds given and route, prescriptions, significant lab abnormalities, going to OR and other pertinent info. @ -42-year-old female past medical history of IBS presents to the emergency department for persistent and continued abdominal pain. Vital signs are stable. Patient acute distress. Physical exam is appreciable for reducible hernia. Patient given 2 mg of IV morphine. Case discussed with Dr. Gutierres who is agreeable for consultation. Case discussed with Dr. Weston for observation admission. Undiagnosed new problem with uncertain prognosis? @ -No Drug Therapy requiring intensive monitoring for toxicity (Heparin, Nitro, Insulin, Cardizem)? @ -No Were any procedures done? @ -No Diagnosis/symptom? Acute, or Chronic, or Acute on Chronic? Uncomplicated (with out systemic symptoms) or Complicated (systemic symptoms)? @ -1. Intractable abdominal pain Side effects of treatment? @ -No Exacerbation, Progression, or Severe Exacerbation? @ -No Poses a threat to life or bodily function? How? (Chest pain, [place], [place], pneumonia, PE, COPD, DKA, ARF, appy, cholecystitis, CVA, Diverticulitis, Homicidal, Suicidal, threat to staff... and all critical care pts) @ -No - Lab Data Result diagrams: 09/17/22 08:15 09/17/22 08:15 Lab Results 09/17/22 09/17/22 Range/Units 08:15 08:15 WBC 7.8 (3.8-10.6) k/uL RBC 4.35 (3.80-5.40) m/uL Hgb 13.5 (11.4-16.0) gm/dL Hct 38.6 (34.0-46.0) % MCV 88.9 (80.0-100.0) fL MCH 31.0 (25.0-35.0) pg MCHC 34.9 (31.0-37.0) g/dL RDW 12.7 (11.5-15.5) % Plt Count 221 (150-450) k/uL MPV 7.6 Neutrophils % 70 % Lymphocytes % 24 % Monocytes % 3 % Eosinophils % 1 % Basophils % 0 % Neutrophils # 5.5 (1.3-7.7) k/uL Lymphocytes # 1.9 (1.0-4.8) k/uL Monocytes # 0.3 (0-1.0) k/uL Eosinophils # 0.1 (0-0.7) k/uL Basophils # 0.0 (0-0.2) k/uL Sodium 137 (137-145) mmol/L Potassium 3.9 (3.5-5.1) mmol/L Chloride 108 H (98-107) mmol/L Carbon Dioxide 24 (22-30) mmol/L Anion Gap 5 mmol/L BUN 13 (7-17) mg/dL Creatinine 0.61 (0.52-1.04) mg/dL Est GFR (CKD-EPI)AfAm >90 (>60 ml/min/1.73 sqM) Est GFR (CKD-EPI)NonAf >90 (>60 ml/min/1.73 sqM) Glucose 92 (74-99) mg/dL Calcium 9.7 (8.4-10.2) mg/dL Total Bilirubin 0.2 (0.2-1.3) mg/dL AST 20 (14-36) U/L ALT 18 (4-34) U/L Alkaline Phosphatase 62 (38-126) U/L Total Protein 6.5 (6.3-8.2) g/dL Albumin 4.0 (3.5-5.0) g/dL Disposition Clinical Impression: Abdominal pain Disposition: ADMITTED IP TO THIS HOSP Condition: Fair Referrals: Darin Julien MD [Primary Care Provider] - 1-2 days Decision Time: 09:52
[2022-09-17 08:26] LABS: Basophils % (A) 0 %; Eosinophils # (A) 0.1 k/uL (0-0.7); Eosinophils % (A) 1 %; HCT 38.6 % (34.0-46.0); HGB 13.5 gm/dL (11.4-16.0); Lymphocytes # (A) 1.9 k/uL (1.0-4.8); Lymphocytes % (A) 24 %; MCHC 34.9 g/dL (31.0-37.0); MCV 88.9 fL (80.0-100.0); Mean Platelet Volume 7.6; Monocytes # (A) 0.3 k/uL (0-1.0); Monocytes % (A) 3 %; Neutrophils # (A) 5.5 k/uL (1.3-7.7); Neutrophils % (A) 70 %; Platelet Count 221 k/uL (150-450); RBC 4.35 m/uL (3.80-5.40); RDW 12.7 % (11.5-15.5); WBC 7.8 k/uL (3.8-10.6)
[2022-09-17 08:37] LABS: ALT 18 U/L (4-34); AST 20 U/L (14-36); African American GFR (CKD) >90 (>60 ml/min/1.73 sqM); Alkaline Phosphatase 62 U/L (38-126); Anion Gap 5 mmol/L; Blood Urea Nitrogen 13 mg/dL (7-17); Calcium 9.7 mg/dL (8.4-10.2); Carbon Dioxide 24 mmol/L (22-30); Chloride 108 mmol/L (98-107); Glucose 92 mg/dL (74-99); Non-African American GFR(CKD) >90 (>60 ml/min/1.73 sqM); Potassium 3.9 mmol/L (3.5-5.1); Sodium 137 mmol/L (137-145); Total Bilirubin 0.2 mg/dL (0.2-1.3); Total Protein 6.5 g/dL (6.3-8.2)
--- NOTE | 2022-09-17 08:39 | XR ---
EXAMINATION TYPE: XR abdomen 1V DATE OF EXAM: 09/17/2022 COMPARISON: 08/23/2019 HISTORY: Abdomen pain hernia TECHNIQUE: Abdomen is examined in the upright view FINDINGS: Normal colonic bowel gas is present. No suspicious air-fluid levels or differential air-flu id levels are present. No free air is present. Cholecystectomy clips are present. Psoas margins are n ormal. No organomegaly is evident. Surgical clips in the right hemipelvis. Osseous structures appear intact. IMPRESSION: 1. No acute abnormality upright abdomen
[2022-09-17] MEDS ORDERED: NALOXONE 0.4 MG/ML 1 ML VIAL IV PRN (09:49)
[2022-09-17] MEDS ORDERED: MORPHINE SULFATE 2 MG/ML SYRINGE IV PRN (09:49)
[2022-09-17] MEDS ORDERED: ONDANSETRON 4 MG/2 ML VIAL IVP PRN (09:49)
[2022-09-17 09:50] VITALS: RESP 16; TEMP 98.1
[2022-09-17] MEDS: SODIUM CHLORIDE 0.9% 1,000 ML IV SCH ×2 (09:56→11:02)
[2022-09-17 10:41] VITALS: BP 106/74; PULSE 64
--- NOTE | 2022-09-17 10:50 | ED ---
Medical Decision Making - Medical Decision Making Patient was seen in the emergency department by primary care doctor. Primary care doctor, Dr. Yuen evaluated the patient spoke with her states that she would not likely benefit from any sort of patient care. She would likely not get any surgery at time of fashion. Furthermore, I would not be in the patient's interest to get any sort of procedure prior to some visual events they have scheduled that is agreeable for discharge with some oral analgesia. Dr. Yuen will arrange for outpatient management of hernia. - Lab Data Result diagrams: 09/17/22 08:15 09/17/22 08:15 Lab Results 09/17/22 09/17/22 Range/Units 08:15 08:15 WBC 7.8 (3.8-10.6) k/uL RBC 4.35 (3.80-5.40) m/uL Hgb 13.5 (11.4-16.0) gm/dL Hct 38.6 (34.0-46.0) % MCV 88.9 (80.0-100.0) fL MCH 31.0 (25.0-35.0) pg MCHC 34.9 (31.0-37.0) g/dL RDW 12.7 (11.5-15.5) % Plt Count 221 (150-450) k/uL MPV 7.6 Neutrophils % 70 % Lymphocytes % 24 % Monocytes % 3 % Eosinophils % 1 % Basophils % 0 % Neutrophils # 5.5 (1.3-7.7) k/uL Lymphocytes # 1.9 (1.0-4.8) k/uL Monocytes # 0.3 (0-1.0) k/uL Eosinophils # 0.1 (0-0.7) k/uL Basophils # 0.0 (0-0.2) k/uL Sodium 137 (137-145) mmol/L Potassium 3.9 (3.5-5.1) mmol/L Chloride 108 H (98-107) mmol/L Carbon Dioxide 24 (22-30) mmol/L Anion Gap 5 mmol/L BUN 13 (7-17) mg/dL Creatinine 0.61 (0.52-1.04) mg/dL Est GFR (CKD-EPI)AfAm >90 (>60 ml/min/1.73 sqM) Est GFR (CKD-EPI)NonAf >90 (>60 ml/min/1.73 sqM) Glucose 92 (74-99) mg/dL Calcium 9.7 (8.4-10.2) mg/dL Total Bilirubin 0.2 (0.2-1.3) mg/dL AST 20 (14-36) U/L ALT 18 (4-34) U/L Alkaline Phosphatase 62 (38-126) U/L Total Protein 6.5 (6.3-8.2) g/dL Albumin 4.0 (3.5-5.0) g/dL Disposition Clinical Impression: Abdominal pain Disposition: HOME SELF-CARE Condition: Fair Is patient prescribed a controlled substance at d/c from ED?: Yes If prescribed controlled substance>3 days was MAPS reviewed?: Prescribed <3 Days Time of Disposition: 10:50
--- NOTE | 2022-09-17 11:08 | ED ---
Medical Decision Making - Lab Data Result diagrams: 09/17/22 08:15 09/17/22 08:15 Lab Results 09/17/22 09/17/22 Range/Units 08:15 08:15 WBC 7.8 (3.8-10.6) k/uL RBC 4.35 (3.80-5.40) m/uL Hgb 13.5 (11.4-16.0) gm/dL Hct 38.6 (34.0-46.0) % MCV 88.9 (80.0-100.0) fL MCH 31.0 (25.0-35.0) pg MCHC 34.9 (31.0-37.0) g/dL RDW 12.7 (11.5-15.5) % Plt Count 221 (150-450) k/uL MPV 7.6 Neutrophils % 70 % Lymphocytes % 24 % Monocytes % 3 % Eosinophils % 1 % Basophils % 0 % Neutrophils # 5.5 (1.3-7.7) k/uL Lymphocytes # 1.9 (1.0-4.8) k/uL Monocytes # 0.3 (0-1.0) k/uL Eosinophils # 0.1 (0-0.7) k/uL Basophils # 0.0 (0-0.2) k/uL Sodium 137 (137-145) mmol/L Potassium 3.9 (3.5-5.1) mmol/L Chloride 108 H (98-107) mmol/L Carbon Dioxide 24 (22-30) mmol/L Anion Gap 5 mmol/L BUN 13 (7-17) mg/dL Creatinine 0.61 (0.52-1.04) mg/dL Est GFR (CKD-EPI)AfAm >90 (>60 ml/min/1.73 sqM) Est GFR (CKD-EPI)NonAf >90 (>60 ml/min/1.73 sqM) Glucose 92 (74-99) mg/dL Calcium 9.7 (8.4-10.2) mg/dL Total Bilirubin 0.2 (0.2-1.3) mg/dL AST 20 (14-36) U/L ALT 18 (4-34) U/L Alkaline Phosphatase 62 (38-126) U/L Total Protein 6.5 (6.3-8.2) g/dL Albumin 4.0 (3.5-5.0) g/dL Disposition Clinical Impression: Abdominal pain Disposition: HOME SELF-CARE Condition: Fair Instructions (If sedation given, give patient instructions): Abdominal Pain (ED) Prescriptions: HYDROcodone/APAP 7.5-325MG [[place] 7.5-325] 1 tab PO Q6HR PRN 3 Days #12 tab PRN Reason: Pain Is patient prescribed a controlled substance at d/c from ED?: Yes If prescribed controlled substance>3 days was MAPS reviewed?: Prescribed <3 Days Referrals: Darin Julien MD [Primary Care Provider] - 1-2 days
== END 2022-09-17 11:24 | disposition home or self-care (01) ==
LOC: EC 07:19 → UNDOADMOB 09:49 → 6NMEDSUR 09:49 → EC 11:24
DX: R10.9 Unspecified abdominal pain (principal); F17.200 Nicotine dependence, unspecified, uncomplicated; Z88.6 Allergy status to analgesic agent
CPT/HCPCS: 99284; 96374; 96375; 96361; 36415; 80053; 85025; 74018; J2405; J2270

== ENCOUNTER → 2024-03-11 | Outpatient (CLI) | payer OTHER ==
--- NOTE | 2024-03-11 11:36 | BD ---
EXAMINATION TYPE: Axial Bone Density DATE OF EXAM: 03/11/2024 CLINICAL HISTORY: 44 years old Female. ICD-10 CODE: N25.81 HYPERPARATHYROIDISM RENAL ORIGIN , Additi onal History: Height: 59.2 Weight: 145 FRAX RISK QUESTIONS: History of Fracture in Adulthood: yes Secondary Osteoporosis: 2. Hyperthyroidism: pt unsure 3. Menopause before 45: yes Current Tobacco Use: yes RISK FACTORS HISTORY OF: MEDICATIONS: EXAM MEASUREMENTS: Bone mineral densitometry was performed using the [employer] System. Bone mineral density as measured about the Lumbar spine is: ----- L1-L4(G/cm2): 1.049 T Score Values are as follows: ----- L1: -1.2 ----- L2: -0.8 ----- L3: -1.2 ----- L4: -1.3 ----- L1-L4: -1.1 Z Score Values are as follows: ----- L1: -1.2 ----- L2: -0.8 ----- L3: -1.2 ----- L4: -1.3 ----- L1-L4: -1.1 First dexa at [facility] Bone mineral density about the R hip (g/cm2): 0.970 Bone mineral density about the L hip (g/cm2): 0.988 T Score values are as follows: -----R Neck: -1.2 -----L Neck: -1.2 -----R Total: -0.3 -----L Total: -0.2 Z Score values are as follows: -----R Neck: -0.6 -----L Neck: -0.6 -----R Total: 0.0 -----L Total: 0.1 First dexa at [facility] FRAX%s: The graph provided illustrates a 2.9% chance for a major osteoporotic fx and a 0.4% chance fo r the hips probability for fx in 10 years time. IMPRESSION: Osteopenia (T Score between -2.5 and -1). There is slightly increased risk of fracture and the patient may be considered for treatment. Re-Screen 2-5 years. NOTE: T-SCORE=SD OF THE YOUNG ADULT MEAN. [facility], , 03/11/2024 11:34 AM
== END | disposition home or self-care (01) ==
LOC: RADBDWWP 09:17
PROVIDERS: ATTEND Internal Medicine Endocrinology, Diabetes & Metabolism
DX: M85.89 Other specified disorders of bone density and structure, multiple sites (principal); N25.81 Secondary hyperparathyroidism of renal origin; Z78.0 Asymptomatic menopausal state
CPT/HCPCS: 77080